=== PATIENT | female | born 1995 | race Caucasian/White ===

== ENCOUNTER 2017-04-20 08:07 | Emergency (ER) | payer OTHER ==
[2017-04-20 08:27] VITALS: TEMP 98.4
[2017-04-20] MEDS ORDERED: KETOROLAC 30 MG/ML 1 ML VIAL IVP STA (09:00)
[2017-04-20] MEDS ORDERED: ONDANSETRON 4 MG/2 ML VIAL IVP STA (09:00)
[2017-04-20] MEDS ORDERED: PANTOPRAZOLE 40 MG/10 ML VIAL IVP STA (09:00)
[2017-04-20] MEDS ORDERED: SODIUM CHLORIDE 0.9% 1,000 ML IV STA (09:00)
--- NOTE | 2017-04-20 09:02 | ED ---
Abdominal Pain HPI - General Chief Complaint: Abdominal Pain Stated Complaint: left side abdominal pain Time Seen by Provider: 04/20/17 08:29 Source: patient, RN notes reviewed, old records reviewed Mode of arrival: ambulatory Limitations: no limitations - History of Present Illness Initial Comments: This patient is a 21-year-old female chief complaint of intermittent left sided abdominal pain for the past 4 days. She reports that she had a sharp stabbing pain and will comply her up out of her sleep. She reports that when she has a sharp sudden pain she feels nauseated and has vomited. She states she's had no fever or chills. Normal bowel movements and urination. Her last cycle was one month ago. Denies any chance of . Patient states that she has no significant medical history. She was diagnosed with GERD approximately 2 years ago she stopped taking any medications as she fell she really does not have croup. She does drink a lot of soda, denies any alcohol or drug use. Patient reports that when she was vomiting this morning she noticed a dark black tinge to it. - Related Data Previous Rx's Medication Instructions Recorded Acetaminophen-Codeine 300-30mg 1 tab PO Q6H PRN #15 tablet 04/20/17 [Tylenol #3] Ketorolac [Toradol] 10 mg PO TID #15 tab 04/20/17 Ondansetron Odt [Zofran Odt] 4 mg PO Q8HR PRN #15 tab 04/20/17 Tamsulosin [Flomax] 0.4 mg PO DAILY #10 cap 04/20/17 Allergies Allergy/AdvReac Type Severity Reaction Status Date / Time No Known Allergies Allergy Verified 04/20/17 08:49 Review of Systems ROS Statement: Those systems with pertinent positive or pertinent negative responses have been documented in the HPI. ROS Other: All systems not noted in ROS Statement are negative. Past Medical History Past Medical History: No Reported History History of Any Multi-Drug Resistant Organisms: None Reported Past Surgical History: No Surgical Hx Reported Past Psychological History: Anxiety, Depression Smoking Status: Current every day smoker Past Alcohol Use History: None Reported Past Drug Use History: Marijuana General Exam - General Exam Comments Initial Comments: This patient is a 21-year-old female. No distress. Limitations: no limitations General appearance: alert, in no apparent distress Head exam: Present: atraumatic, normocephalic, normal inspection Eye exam: Present: normal appearance, PERRL, EOMI. Absent: scleral icterus, conjunctival injection, periorbital swelling ENT exam: Present: normal exam, mucous membranes moist Neck exam: Present: normal inspection. Absent: tenderness, meningismus, lymphadenopathy Respiratory exam: Present: normal lung sounds bilaterally. Absent: respiratory distress, wheezes, rales, rhonchi, stridor Cardiovascular Exam: Present: regular rate, normal rhythm, normal heart sounds. Absent: systolic murmur, diastolic murmur, rubs, gallop, clicks GI/Abdominal exam: Present: soft, tenderness (Patient is a minimal left lower quadrant tenderness and left CVA tenderness.), normal bowel sounds. Absent: distended, guarding, rebound, rigid Extremities exam: Present: normal inspection, full ROM, normal capillary refill. Absent: tenderness, pedal edema, joint swelling, calf tenderness Back exam: Present: normal inspection, CVA tenderness (L) Neurological exam: Present: alert, oriented X3, CN II-XII intact Psychiatric exam: Present: normal affect, normal mood Skin exam: Present: warm, dry, intact, normal color. Absent: rash Course Vital Signs 04/20/17 08:24 Temperature 98.4 F Pulse Rate 18 L Respiratory 74 H Rate Blood Pressure 141/67 O2 Sat by Pulse 98 Oximetry Medical Decision Making - Medical Decision Making This is a 21-year-old female presents emergency Department a chief complaint of intermittent left side abdominal pain for the past few days. He reports it woke up out of her pain. At this time patient was given IV fluids labwork obtained. Given Toradol and nausea medicine. Patient urinalysis is positive for many red blood cells. She is not on her menstrual cycle. Concern for possible ureteral stone. Patient has some minor left CVA tenderness. This time patient's CT abdomen and pelvis was performed evidence of a 2 mm ureteral stone or possible phlebolith. At this time is likely a ureteral stone due to blood in her urine. I will treat the patient with Flomax, Toradol, nausea medicine. Her urinalysis shows no significant signs of infection. We will do a urine culture. I discussed that she needs to follow-up with her primary care provider take the medicines for the urinary obstruction or stone to pass. Patient understands treatment plan will comply. Return parameters were discussed. - Lab Data Result diagrams: 04/20/17 09:19 04/20/17 09:19 Lab Results 04/20/17 04/20/17 04/20/17 Range/Units 09:19 09:19 09:30 WBC 12.5 H (4.0-11.0) k/uL RBC 4.37 (3.80-5.40) m/uL Hgb 13.9 (11.4-16.0) gm/dL Hct 40.9 (34.0-46.0) % MCV 93.5 (80.0-100.0) fL MCH 31.7 (25.0-35.0) pg MCHC 33.9 (31.0-37.0) g/dL RDW 11.8 (11.5-15.5) % Plt Count 269 (150-450) k/uL Neutrophils % 83 % Lymphocytes % 10 % Monocytes % 5 % Eosinophils % 1 % Basophils % 1 % Neutrophils # 10.4 H (1.3-7.7) k/uL Lymphocytes # 1.2 (1.0-4.8) k/uL Monocytes # 0.6 (0-1.0) k/uL Eosinophils # 0.2 (0-0.7) k/uL Basophils # 0.1 (0-0.2) k/uL Sodium 143 (137-145) mmol/L Potassium 4.0 (3.5-5.1) mmol/L Chloride 107 (98-107) mmol/L Carbon Dioxide 23 (22-30) mmol/L Anion Gap 13 mmol/L BUN 11 (7-17) mg/dL Creatinine 0.75 (0.52-1.04) mg/dL Est GFR (MDRD) Af Amer >60 (>60 ml/min/1.73 sqM) Est GFR (MDRD) Non-Af >60 (>60 ml/min/1.73 sqM) Glucose 106 H (74-99) mg/dL Calcium 9.7 (8.4-10.2) mg/dL Total Bilirubin 1.0 (0.2-1.3) mg/dL AST 19 (14-36) U/L ALT 23 (9-52) U/L Alkaline Phosphatase 71 (38-126) U/L Total Protein 7.4 (6.3-8.2) g/dL Albumin 4.4 (3.5-5.0) g/dL Amylase 73 (30-110) U/L Lipase 79 (23-300) U/L Urine Color Light Red Urine Appearance Cloudy H (Clear) Urine pH 6.0 (5.0-8.0) Ur Specific [place] 1.017 (1.001-1.035) Urine Protein 1+ H (Negative) Urine Glucose (UA) Negative (Negative) Urine Ketones Negative (Negative) Urine Blood Large H (Negative) Urine Nitrite Negative (Negative) Urine Bilirubin Negative (Negative) Urine Urobilinogen <2.0 (<2.0) mg/dL Ur Leukocyte Esterase Trace H (Negative) Urine RBC >182 H (0-5) /hpf Urine WBC 16 H (0-5) /hpf Ur Squamous Epith Cells 11 H (0-4) /hpf Urine Bacteria Occasional H (None) /hpf Urine Mucus Many H (None) /hpf Urine HCG, Qual (Not Detectd) 04/20/17 Range/Units 09:30 WBC (4.0-11.0) k/uL RBC (3.80-5.40) m/uL Hgb (11.4-16.0) gm/dL Hct (34.0-46.0) % MCV (80.0-100.0) fL MCH (25.0-35.0) pg MCHC (31.0-37.0) g/dL RDW (11.5-15.5) % Plt Count (150-450) k/uL Neutrophils % % Lymphocytes % % Monocytes % % Eosinophils % % Basophils % % Neutrophils # (1.3-7.7) k/uL Lymphocytes # (1.0-4.8) k/uL Monocytes # (0-1.0) k/uL Eosinophils # (0-0.7) k/uL Basophils # (0-0.2) k/uL Sodium (137-145) mmol/L Potassium (3.5-5.1) mmol/L Chloride (98-107) mmol/L Carbon Dioxide (22-30) mmol/L Anion Gap mmol/L BUN (7-17) mg/dL Creatinine (0.52-1.04) mg/dL Est GFR (MDRD) Af Amer (>60 ml/min/1.73 sqM) Est GFR (MDRD) Non-Af (>60 ml/min/1.73 sqM) Glucose (74-99) mg/dL Calcium (8.4-10.2) mg/dL Total Bilirubin (0.2-1.3) mg/dL AST (14-36) U/L ALT (9-52) U/L Alkaline Phosphatase (38-126) U/L Total Protein (6.3-8.2) g/dL Albumin (3.5-5.0) g/dL Amylase (30-110) U/L Lipase (23-300) U/L Urine Color Urine Appearance (Clear) Urine pH (5.0-8.0) Ur Specific [place] (1.001-1.035) Urine Protein (Negative) Urine Glucose (UA) (Negative) Urine Ketones (Negative) Urine Blood (Negative) Urine Nitrite (Negative) Urine Bilirubin (Negative) Urine Urobilinogen (<2.0) mg/dL Ur Leukocyte Esterase (Negative) Urine RBC (0-5) /hpf Urine WBC (0-5) /hpf Ur Squamous Epith Cells (0-4) /hpf Urine Bacteria (None) /hpf Urine Mucus (None) /hpf Urine HCG, Qual Not Detected (Not Detectd) - Radiology Data Radiology results: report reviewed 2 mm left pelvic density fevers follow-up at distal ureter calculus felt less likely but not excluded. No significant hydronephrosis. Correlate clinically with urine laboratories. Disposition Clinical Impression: Ureteral stone Disposition: HOME SELF-CARE Condition: Good Instructions: Ureteral Stones (ED) Additional Instructions: Patient advised to rest, remain hydrated. Take the medications as prescribed. Follow-up with primary care provider. Also follow-up with urology. Return to the emergency department if any alarming signs or symptoms occur. Prescriptions: Acetaminophen-Codeine 300-30mg [Tylenol #3] 1 tab PO Q6H PRN #15 tablet PRN Reason: Pain Ketorolac [Toradol] 10 mg PO TID #15 tab Ondansetron Odt [Zofran Odt] 4 mg PO Q8HR PRN #15 tab PRN Reason: Nausea Tamsulosin [Flomax] 0.4 mg PO DAILY #10 cap Referrals: None,Stated [Primary Care Provider] - 1-2 days Thee Lambert MD [STAFF PHYSICIAN] - 1-2 days Mirella Liu MD [STAFF PHYSICIAN] - 1-2 days Time of Disposition: 11:36
[2017-04-20 09:34] LABS: Basophils # (A) 0.1 k/uL (0-0.2); Basophils % (A) 1 %; Eosinophils # (A) 0.2 k/uL (0-0.7); Eosinophils % (A) 1 %; HCT 40.9 % (34.0-46.0); HGB 13.9 gm/dL (11.4-16.0); Lymphocytes # (A) 1.2 k/uL (1.0-4.8); Lymphocytes % (A) 10 %; MCH 31.7 pg (25.0-35.0); MCHC 33.9 g/dL (31.0-37.0); MCV 93.5 fL (80.0-100.0); Mean Platelet Volume 6.9; Monocytes # (A) 0.6 k/uL (0-1.0); Monocytes % (A) 5 %; Neutrophils # (A) 10.4 k/uL (1.3-7.7); Neutrophils % (A) 83 %; Platelet Count 269 k/uL (150-450); RBC 4.37 m/uL (3.80-5.40); RDW 11.8 % (11.5-15.5); WBC 12.5 k/uL (4.0-11.0)
[2017-04-20 09:49] LABS: ALT 23 U/L (9-52); AST 19 U/L (14-36); Albumin 4.4 g/dL (3.5-5.0); Alkaline Phosphatase 71 U/L (38-126); Amylase 73 U/L (30-110); Anion Gap 13 mmol/L; Blood Urea Nitrogen 11 mg/dL (7-17); Calcium 9.7 mg/dL (8.4-10.2); Carbon Dioxide 23 mmol/L (22-30); Chloride 107 mmol/L (98-107); Glucose 106 mg/dL (74-99); Lipase 79 U/L (23-300); Sodium 143 mmol/L (137-145); Total Protein 7.4 g/dL (6.3-8.2)
[2017-04-20 09:59] LABS: Appearance,Urine Cloudy (Clear); Bacteria,Urine Occasional /hpf; Bilirubin,Urine Negative (Negative); Blood,Urine Large (Negative); Color,Urine Light Red; Glucose,Urine (UA) Negative (Negative); Ketones,Urine Negative (Negative); Leukocyte Esterase,Urine Trace (Negative); Mucus,Urine Many /hpf; Nitrite,Urine Negative (Negative); Protein,Urine 1+ (Negative); RBC,Urine >182 /hpf (0-5); Specific Gravity,Urine 1.017 (1.001-1.035); Squamous Epithelial Cell,Urine 11 /hpf (0-4); Urobilinogen,Urine <2.0 mg/dL (<2.0); WBC,Urine 16 /hpf (0-5)
--- NOTE | 2017-04-20 10:23 | XR ---
EXAMINATION TYPE: XR KUB DATE OF EXAM: 04/20/2017 10:17 AM CLINICAL HISTORY: Left lower quadrant pain for 5 days. TECHNIQUE: Two Upright KUB images of the abdomen are obtained. COMPARISON: Abdominal x-ray and CT abdomen and pelvis April 04, 2015 FINDINGS: Scattered gas is seen in non-distended small bowel loops. Gas and fecal material is seen in non-distended colon. There is no visceromegaly, pneumoperitoneum, or abnormal calcification apprecia sarah. The lung bases are clear and the osseous structures are intact. IMPRESSION: Overall nonobstructive bowel gas pattern.
--- NOTE | 2017-04-20 11:16 | CT ---
EXAMINATION TYPE: CT abdomen pelvis wo con DATE OF EXAM: 04/20/2017 HISTORY: Lt side flank pain for [address] DLP: 478.1 mGycm. Automated Exposure Control for Dose Reduction was Utilized. TECHNIQUE: CT scan of the abdomen and pelvis is performed without oral or IV contrast. COMPARISON: CT abdomen and pelvis April 04, 2015 FINDINGS: Within the limitations of a non-contrast study, the following observations are made. LUNG BASES: No significant abnormality is appreciated. LIVER/GB: No significant abnormality is appreciated. PANCREAS: No significant abnormality is seen. SPLEEN: Stable 1.1 cm splenule in splenic hilum axial image 31. ADRENALS: No significant abnormality is seen. KIDNEYS: No renal stones or hydronephrosis is present bilaterally. No intraluminal calculus is seen i n poorly distended bladder. There is redemonstration of right-sided pelvic phleboliths which are more prominent in size versus prior. There is new 2 mm density left pelvis superior to these axial image 123 sagittal image 67 and coronal image 53 could reflect phlebolith versus distal ureter calculus, fa vor former but latter is not excluded. There is more prominent inferior left pelvic phlebolith axial image 135 noted. BOWEL: Appendix is unremarkable descending from cecum in the right lower quadrant. GENITAL ORGANS: No gross abnormality seen. LYMPH NODES: No greater than 1cm abdominal or pelvic lymph nodes are appreciated. OSSEOUS STRUCTURES: No significant abnormality is seen. OTHER: No significant additional abnormality is seen. IMPRESSION: New 2 mm superior left pelvic density favors phlebolith, distal ureter calculus felt less likely but not excluded. No significant hydronephrosis identified. Correlate clinically and with uri ne lab values.
[2017-04-20 12:01] VITALS: BP 131/65; PULSE 67; RESP 18
== END 2017-04-20 12:02 | disposition home or self-care (01) ==
LOC: EC 08:07
DX: N20.1 Calculus of ureter (principal); F17.200 Nicotine dependence, unspecified, uncomplicated
CPT/HCPCS: 36415; 80053; 82150; 83690; 85025; 81001; 81025; 74018; 74176; 99285; 96374; 96375 ×2; 96361 ×3; J2405; J1885; C9113

== ENCOUNTER 2017-04-26 06:15 | Emergency (ER) | payer OTHER ==
[2017-04-26] MEDS ORDERED: KETOROLAC 30 MG/ML 1 ML VIAL IVP STA (06:41)
[2017-04-26] MEDS ORDERED: ONDANSETRON 4 MG/2 ML VIAL IVP STA (06:52)
[2017-04-26 07:11] LABS: Basophils # (A) 0.1 k/uL (0-0.2); Basophils % (A) 0 %; Eosinophils # (A) 0.3 k/uL (0-0.7); Eosinophils % (A) 2 %; HCT 40.5 % (34.0-46.0); HGB 13.8 gm/dL (11.4-16.0); Lymphocytes # (A) 2.4 k/uL (1.0-4.8); Lymphocytes % (A) 15 %; MCH 31.7 pg (25.0-35.0); MCV 93.1 fL (80.0-100.0); Mean Platelet Volume 6.8; Monocytes # (A) 0.5 k/uL (0-1.0); Monocytes % (A) 3 %; Neutrophils # (A) 12.1 k/uL (1.3-7.7); Neutrophils % (A) 78 %; Platelet Count 332 k/uL (150-450); RBC 4.35 m/uL (3.80-5.40); RDW 11.7 % (11.5-15.5); WBC 15.4 k/uL (4.0-11.0)
[2017-04-26 07:23] LABS: ALT 24 U/L (9-52); AST 16 U/L (14-36); Albumin 4.4 g/dL (3.5-5.0); Alkaline Phosphatase 67 U/L (38-126); Amylase 68 U/L (30-110); Anion Gap 13 mmol/L; Blood Urea Nitrogen 11 mg/dL (7-17); Calcium 9.8 mg/dL (8.4-10.2); Carbon Dioxide 25 mmol/L (22-30); Chloride 109 mmol/L (98-107); Glucose 128 mg/dL (74-99); Lipase 103 U/L (23-300); Potassium 3.8 mmol/L (3.5-5.1); Sodium 147 mmol/L (137-145); Total Bilirubin 0.6 mg/dL (0.2-1.3); Total Protein 7.5 g/dL (6.3-8.2)
[2017-04-26] MEDS ORDERED: TAMSULOSIN 0.4 MG CAP.ER.24H PO STA (08:30)
[2017-04-26] MEDS ORDERED: MORPHINE SULFATE 4 MG/ML SYRINGE IVP STA (08:30)
--- NOTE | 2017-04-26 08:30 | ED ---
General Adult HPI - General Chief complaint: Abdominal Pain Stated complaint: Female Time Seen by Provider: 04/26/17 07:17 Source: patient, RN notes reviewed, old records reviewed Mode of arrival: ambulatory Limitations: no limitations - History of Present Illness Initial comments: This is a 21-year-old female to the ER for evaluation. Patient presents today for evaluation regarding flank pain. Patient states she has history of kidney stone recent diagnosis of kidney stone and has continued pain for about a week. Patient was seen in this emergency room. Pain is been persistent, patient states she has no insurance was unable to take medications at home to help passed kidney stone. Patient denies any fevers no nausea vomiting. No diarrhea no blood in her stool - Related Data Previous Rx's Medication Instructions Recorded Acetaminophen-Codeine 300-30mg 1 tab PO Q6H PRN #15 tablet 04/20/17 [Tylenol #3] Ketorolac [Toradol] 10 mg PO TID #15 tab 04/20/17 Ondansetron Odt [Zofran Odt] 4 mg PO Q8HR PRN #15 tab 04/20/17 Tamsulosin [Flomax] 0.4 mg PO DAILY #10 cap 04/20/17 Allergies Allergy/AdvReac Type Severity Reaction Status Date / Time No Known Allergies Allergy Verified 04/26/17 06:23 Review of Systems ROS Statement: Those systems with pertinent positive or pertinent negative responses have been documented in the HPI. ROS Other: All systems not noted in ROS Statement are negative. Past Medical History Past Medical History: No Reported History History of Any Multi-Drug Resistant Organisms: None Reported Past Surgical History: No Surgical Hx Reported Past Psychological History: Anxiety, Depression Smoking Status: Current every day smoker Past Alcohol Use History: None Reported Past Drug Use History: Marijuana General Exam Limitations: no limitations General appearance: alert, in no apparent distress Head exam: Present: atraumatic, normocephalic, normal inspection Eye exam: Present: normal appearance, PERRL, EOMI. Absent: scleral icterus, conjunctival injection, periorbital swelling ENT exam: Present: normal exam, mucous membranes moist Neck exam: Present: normal inspection. Absent: tenderness, meningismus, lymphadenopathy Respiratory exam: Present: normal lung sounds bilaterally. Absent: respiratory distress, wheezes, rales, rhonchi, stridor Cardiovascular Exam: Present: regular rate, normal rhythm, normal heart sounds. Absent: systolic murmur, diastolic murmur, rubs, gallop, clicks GI/Abdominal exam: Present: soft, normal bowel sounds. Absent: distended, tenderness, guarding, rebound, rigid Extremities exam: Present: normal inspection, full ROM, normal capillary refill. Absent: tenderness, pedal edema, joint swelling, calf tenderness Back exam: Present: normal inspection Neurological exam: Present: alert, oriented X3, CN II-XII intact Psychiatric exam: Present: normal affect, normal mood Skin exam: Present: warm, dry, intact, normal color. Absent: rash Course Vital Signs 04/26/17 06:19 Temperature 97.7 F Pulse Rate 88 Respiratory 20 Rate Blood Pressure 153/95 O2 Sat by Pulse 95 Oximetry - Reevaluation(s) Reevaluation #1: 04/26/17 08:30 ER visit is reviewed including hematuria, kidney stone Medical Decision Making - Medical Decision Making 21 female the ER with continued flank pain. Kidney stone. Patient encouraged to this increased fluid intake. - Lab Data Result diagrams: 04/26/17 07:00 04/26/17 07:00 Lab Results 04/26/17 04/26/17 04/26/17 Range/Units 05:30 07:00 07:00 WBC 15.4 H (4.0-11.0) k/uL RBC 4.35 (3.80-5.40) m/uL Hgb 13.8 (11.4-16.0) gm/dL Hct 40.5 (34.0-46.0) % MCV 93.1 (80.0-100.0) fL MCH 31.7 (25.0-35.0) pg MCHC 34.0 (31.0-37.0) g/dL RDW 11.7 (11.5-15.5) % Plt Count 332 (150-450) k/uL Neutrophils % 78 % Lymphocytes % 15 % Monocytes % 3 % Eosinophils % 2 % Basophils % 0 % Neutrophils # 12.1 H (1.3-7.7) k/uL Lymphocytes # 2.4 (1.0-4.8) k/uL Monocytes # 0.5 (0-1.0) k/uL Eosinophils # 0.3 (0-0.7) k/uL Basophils # 0.1 (0-0.2) k/uL Sodium 147 H (137-145) mmol/L Potassium 3.8 (3.5-5.1) mmol/L Chloride 109 H (98-107) mmol/L Carbon Dioxide 25 (22-30) mmol/L Anion Gap 13 mmol/L BUN 11 (7-17) mg/dL Creatinine 0.82 (0.52-1.04) mg/dL Est GFR (MDRD) Af Amer >60 (>60 ml/min/1.73 sqM) Est GFR (MDRD) Non-Af >60 (>60 ml/min/1.73 sqM) Glucose 128 H (74-99) mg/dL Calcium 9.8 (8.4-10.2) mg/dL Total Bilirubin 0.6 (0.2-1.3) mg/dL AST 16 (14-36) U/L ALT 24 (9-52) U/L Alkaline Phosphatase 67 (38-126) U/L Total Protein 7.5 (6.3-8.2) g/dL Albumin 4.4 (3.5-5.0) g/dL Amylase 68 (30-110) U/L Lipase 103 (23-300) U/L Urine HCG, Qual Not Detected (Not Detectd) - Radiology Data Radiology results: report reviewed (Ultrasound kidneys and bladder shows no acute disease), image reviewed Disposition Clinical Impression: Ureteral stone Disposition: HOME SELF-CARE Condition: Good Instructions: Kidney Stones (ED) Referrals: None,Stated [Primary Care Provider] - 1-2 days
--- NOTE | 2017-04-26 08:58 | US ---
EXAMINATION TYPE: US kidneys/renal and bladder DATE OF EXAM: 04/26/2017 COMPARISON: CT 04/20/2017 CLINICAL HISTORY: Left side Pain. Vomiting EXAM MEASUREMENTS: Right Kidney: 10.0 x 3.9 x 4.3 cm Left Kidney: 9.9 x 5.3 x 5.1 cm Right Kidney: No hydronephrosis or masses seen Left Kidney: No hydronephrosis or masses seen Bladder: Not fully distended, and therefore limited in evaluation Bilateral Jets seen: No, bladder not distended There is no evidence for hydronephrosis at this point in time. No nephrolithiasis is seen. No tash s are identified. IMPRESSION: No acute process.
[2017-04-26 09:11] VITALS: BP 124/66; PULSE 60; RESP 18; TEMP 97.1
[2017-04-26 09:14] LABS: Amorphous Sediment,Urine Occasional /hpf; Appearance,Urine Turbid (Clear); Bilirubin,Urine Negative (Negative); Blood,Urine Moderate (Negative); Color,Urine Yellow; Glucose,Urine (UA) Negative (Negative); Ketones,Urine 1+ (Negative); Leukocyte Esterase,Urine Negative (Negative); Mucus,Urine Few /hpf; Nitrite,Urine Negative (Negative); PH, Urine 5.5 (5.0-8.0); Protein,Urine 1+ (Negative); RBC,Urine 132 /hpf (0-5); Specific Gravity,Urine 1.023 (1.001-1.035); Squamous Epithelial Cell,Urine 3 /hpf (0-4); Urobilinogen,Urine <2.0 mg/dL (<2.0)
[2017-04-27 13:13] LABS: Chlamydia trachomatis rRNA Not detected (Not detected); Neisseria gonorrhoeae rRNA Not detected (Not detected)
== END 2017-04-26 09:39 | disposition home or self-care (01) ==
LOC: EC 06:15
DX: N20.2 Calculus of kidney with calculus of ureter (principal); F17.200 Nicotine dependence, unspecified, uncomplicated
CPT/HCPCS: 36415; 80053; 87591; 87491; 82150; 83690; 85025; 81001; 81025; 87086; 76770; 99284; 96374; 96375 ×2; J2270; J2405; J1885

== ENCOUNTER 2018-01-02 00:17 | Emergency (ER) | payer OTHER ==
[2018-01-02] MEDS ORDERED: IBUPROFEN 600 MG TAB PO STA (01:09)
[2018-01-02] MEDS ORDERED: ACETAMINOPHEN TAB 325 MG TAB PO STA (01:09)
--- NOTE | 2018-01-02 01:13 | XR ---
EXAMINATION TYPE: XR Hip RT and AP Pelvis DATE OF EXAM: 01/02/2018 COMPARISON: April 04, 2015 HISTORY: Hip pain TECHNIQUE: A single AP view of the pelvis is obtained. Two views of the right hip are obtained. FINDINGS: The pelvic ring is intact. Proximal femurs and hip joints appear normal. There is no sign o f hip dysplasia. Sacroiliac joints appear normal. IMPRESSION: Normal pelvis and right hip exam.
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
[2018-01-02 01:51] VITALS: BP 117/76; PULSE 88; RESP 20; TEMP 99.1
== END 2018-01-02 01:51 | disposition home or self-care (01) ==
LOC: EC 00:17
DX: S76.011A Strain of muscle, fascia and tendon of right hip, initial encounter (principal); S76.311A Strain of muscle, fascia and tendon of the posterior muscle group at thigh level, right thigh, initial encounter; F17.200 Nicotine dependence, unspecified, uncomplicated; W19.XXXA Unspecified fall, initial encounter
CPT/HCPCS: 73502; 99283

== ENCOUNTER 2018-12-16 05:51 | Inpatient (IN) | payer OTHER ==
[2018-12-16] MEDS ORDERED: ONDANSETRON 4 MG/2 ML VIAL IVP STA (06:33)
[2018-12-16] MEDS ORDERED: MORPHINE SULFATE 4 MG/ML SYRINGE IV STA (06:33)
[2018-12-16] MEDS ORDERED: SODIUM CHLORIDE 0.9% 1,000 ML IV STA (06:33)
--- NOTE | 2018-12-16 06:37 | ED ---
Abdominal Pain HPI - General Source: patient, RN notes reviewed Mode of arrival: ambulatory Limitations: no limitations <Evelio Blele - Last Filed: 12/16/18 09:26> <Dheeraj Brooks - Last Filed: 12/16/18 09:33> - General Chief Complaint: Abdominal Pain Stated Complaint: abd pain Time Seen by Provider: 12/16/18 06:18 - History of Present Illness Initial Comments: This a 23-year-old female presents emergency Department chief complaint of severe pelvic pain. Patient states it started approximately 1:00 this morning. Patient does admit that started after intercourse. Patient states that she's never had pain like this in the past. Patient is more left-sided than right- sided but states her whole lower pelvic region hurts. She denies any vaginal bleeding or vaginal discharge. Patient denies any prior abdominal surgeries. Patient denies any chance . Patient does not take any current medications last mental cycle 3-4 weeks ago. Patient states that she has been vomiting for the pain, sweating. Patient denies any history of STDs. Patient denies any flank pain, upper abdominal pain. (Evelio Belle) - Related Data Home Medications Medication Instructions Recorded Confirmed No Known Home Medications 12/16/18 12/16/18 Allergies Allergy/AdvReac Type Severity Reaction Status Date / Time No Known Allergies Allergy Verified 12/16/18 08:51 Review of Systems ROS Other: All systems not noted in ROS Statement are negative. <Evelio Belle - Last Filed: 12/16/18 09:26> ROS Other: All systems not noted in ROS Statement are negative. <Dheeraj Brooks - Last Filed: 12/16/18 09:33> ROS Statement: Those systems with pertinent positive or pertinent negative responses have been documented in the HPI. Past Medical History Past Medical History: No Reported History History of Any Multi-Drug Resistant Organisms: None Reported Past Surgical History: No Surgical Hx Reported Past Psychological History: Anxiety, Depression Smoking Status: Current every day smoker Past Alcohol Use History: Occasional Past Drug Use History: Marijuana <Evelio Belle - Last Filed: 12/16/18 09:26> General Exam Limitations: no limitations General appearance: alert, in no apparent distress Head exam: Present: atraumatic, normocephalic, normal inspection Eye exam: Present: normal appearance, PERRL, EOMI. Absent: scleral icterus, conjunctival injection, periorbital swelling ENT exam: Present: normal exam, normal oropharynx, mucous membranes moist Neck exam: Present: normal inspection, full ROM. Absent: tenderness, me ningismus, lymphadenopathy Respiratory exam: Present: normal lung sounds bilaterally. Absent: respiratory distress, wheezes, rales, rhonchi, stridor Cardiovascular Exam: Present: regular rate, normal rhythm, normal heart sounds. Absent: systolic murmur, diastolic murmur, rubs, gallop, clicks GI/Abdominal exam: Present: soft, tenderness (Moderate lower quadrant tenderness), normal bowel sounds. Absent: distended, guarding, rebound, rigid Back exam: Absent: CVA tenderness (R), CVA tenderness (L) Neurological exam: Present: alert, oriented X3 Skin exam: Present: warm, dry, intact, normal color. Absent: rash <Evelio Belle - Last Filed: 12/16/18 09:26> Course <Dheeraj Brooks - Last Filed: 12/16/18 09:33> Vital Signs 12/16/18 12/16/18 06:07 07:15 Temperature 97.7 F Pulse Rate 58 L 115 H Respiratory 22 17 Rate Blood Pressure 137/101 152/98 O2 Sat by Pulse 96 95 Oximetry - Reevaluation(s) Reevaluation #1: 12/16/18 09:29 PA supervision: I pursued a [id number] evaluation the patient she did demonstrate right lower quadrant pain after sexual intercourse this morning. Imaging and workup suggest tubo-ovarian abscess please see the labs and imaging studies. I did discuss the case with Dr. Natarajan patient will be admitted for IV antibiotics and further evaluation. Patient does say she had fevers chills and sweats this morning (Dheeraj Brooks) Medical Decision Making - Lab Data Result diagrams: 12/16/18 06:41 12/16/18 06:41 <Evelio Belle - Last Filed: 12/16/18 09:26> - Lab Data Result diagrams: 12/16/18 06:41 12/16/18 06:41 <Dheeraj Brooks - Last Filed: 12/16/18 09:33> - Medical Decision Making Patient on have leukocytosis with a white count is 26.7. Patient has tenderness the right adnexal region ultrasound shows some abnormality CT was obtained at this time which shows possibility of tubo-ovarian abscess versus ectopic patient is not . Case discussed with Dr. Natarajan who admitted patient started on IV antibiotics. (Evelio Belle) - Lab Data Lab Results 12/16/18 12/16/18 12/16/18 Range/Units 06:41 06:41 08:22 WBC 26.7 H (3.8-10.6) k/uL RBC 4.10 (3.80-5.40) m/uL Hgb 13.0 (11.4-16.0) gm/dL Hct 38.3 (34.0-46.0) % MCV 93.5 (80.0-100.0) fL MCH 31.8 (25.0-35.0) pg MCHC 34.0 (31.0-37.0) g/dL RDW 12.7 (11.5-15.5) % Plt Count 459 H (150-450) k/uL Neutrophils % 90 % Lymphocytes % 7 % Monocytes % 3 % Eosinophils % 0 % Basophils % 0 % Neutrophils # 24.0 H (1.3-7.7) k/uL Lymphocytes # 1.7 (1.0-4.8) k/uL Monocytes # 0.7 (0-1.0) k/uL Eosinophils # 0.1 (0-0.7) k/uL Basophils # 0.1 (0-0.2) k/uL Sodium 140 (137-145) mmol/L Potassium 4.1 (3.5-5.1) mmol/L Chloride 107 (98-107) mmol/L Carbon Dioxide 20 L (22-30) mmol/L Anion Gap 13 mmol/L BUN 14 (7-17) mg/dL Creatinine 0.73 (0.52-1.04) mg/dL Est GFR (CKD-EPI)AfAm >90 (>60 ml/min/1.73 sqM) Est GFR (CKD-EPI)NonAf >90 (>60 ml/min/1.73 sqM) Glucose 145 H (74-99) mg/dL Calcium 10.0 (8.4-10.2) mg/dL Total Bilirubin 0.7 (0.2-1.3) mg/dL AST 27 (14-36) U/L ALT 30 (9-52) U/L Alkaline Phosphatase 76 (38-126) U/L Total Protein 8.2 (6.3-8.2) g/dL Albumin 4.8 (3.5-5.0) g/dL Lipase 82 (23-300) U/L HCG, Qual Not Detected Urine Color Light [place] Urine Appearance Turbid H (Clear) Urine pH 5.0 (5.0-8.0) Ur Specific [place] 1.026 (1.001-1.035) Urine Protein Trace H (Negative) Urine Glucose (UA) Negative (Negative) Urine Ketones 1+ H (Negative) Urine Blood Negative (Negative) Urine Nitrite Negative (Negative) Urine Bilirubin Negative (Negative) Urine Urobilinogen <2.0 (<2.0) mg/dL Ur Leukocyte Esterase Negative (Negative) Amorphous Sediment Moderate H (None) /hpf Urine Mucus Many H (None) /hpf Disposition <Evelio Belle - Last Filed: 12/16/18 09:26> <Dheeraj Brooks - Last Filed: 12/16/18 09:33> Clinical Impression: Right tubo-ovarian abscess Disposition: ADMITTED IP TO THIS HOSP Condition: Fair Referrals: None,Stated [Primary Care Provider] - 1-2 days
[2018-12-16 06:47] LABS: Basophils # (A) 0.1 k/uL (0-0.2); Basophils % (A) 0 %; Eosinophils # (A) 0.1 k/uL (0-0.7); Eosinophils % (A) 0 %; HCT 38.3 % (34.0-46.0); Lymphocytes # (A) 1.7 k/uL (1.0-4.8); Lymphocytes % (A) 7 %; MCH 31.8 pg (25.0-35.0); MCV 93.5 fL (80.0-100.0); Mean Platelet Volume 5.8; Monocytes # (A) 0.7 k/uL (0-1.0); Monocytes % (A) 3 %; Neutrophils % (A) 90 %; Platelet Count 459 k/uL (150-450); RDW 12.7 % (11.5-15.5); WBC 26.7 k/uL (3.8-10.6)
[2018-12-16 07:06] LABS: ALT 30 U/L (9-52); AST 27 U/L (14-36); African American GFR (CKD) >90 (>60 ml/min/1.73 sqM); Albumin 4.8 g/dL (3.5-5.0); Alkaline Phosphatase 76 U/L (38-126); Anion Gap 13 mmol/L; Blood Urea Nitrogen 14 mg/dL (7-17); Carbon Dioxide 20 mmol/L (22-30); Chloride 107 mmol/L (98-107); Glucose 145 mg/dL (74-99); Potassium 4.1 mmol/L (3.5-5.1); Sodium 140 mmol/L (137-145); Total Bilirubin 0.7 mg/dL (0.2-1.3); Total Protein 8.2 g/dL (6.3-8.2)
[2018-12-16 07:07] LABS: HCG,Qualitative Serum Not Detected
[2018-12-16] MEDS ORDERED: SODIUM CHLORIDE 0.9% 1,000 ML IV ONE (07:17)
[2018-12-16] MEDS ORDERED: METOCLOPRAMIDE 5 MG/ML 2 ML VIAL IVP STA (07:17)
[2018-12-16] MEDS ORDERED: diphenhydrAMINE 50 MG/ML 1 ML VIAL IVP STA (07:17)
--- NOTE | 2018-12-16 08:05 | US ---
EXAMINATION TYPE: US transvaginal DATE OF EXAM: 12/16/2018 COMPARISON: NONE CLINICAL HISTORY: pain lower pelvic region. RLQ pain TECHNIQUE: Transvaginal (TV). EXAM MEASUREMENTS: Uterus: 8.2 x 3.5 x 4.2 cm Endometrial Stripe: .9 cm Right Ovary: 4.5 x 3.7 x 3.8 cm 1. Uterus: Anteverted Nabothian cyst 2. Endometrium: wnl 3. Right Ovary: Enlarged heterogenous with calcifications seen. 4. Left Ovary: Obscured by overlying bowel gas Spectral, color and waveform doppler imaging shows good arterial and venous flow within the right o vary; there is no evidence for ovarian torsion. 5. Bilateral Adnexa: wnl 6. Posterior cul-de-sac: wnl IMPRESSION: 1. NABOTHIAN CYST. 2. ABNORMAL APPEARING RIGHT OVARY. SHORT-TERM FOLLOW-UP WOULD BE SUGGESTED.
--- NOTE | 2018-12-16 08:57 | CT ---
EXAMINATION TYPE: CT abdomen pelvis w con DATE OF EXAM: 12/16/2018 REFERENCE: Previous study dated 04/20/2017. HISTORY: lower pain HISTORY: Pelvic pain with frequent urination CT DLP: 1146.3 mGy Automated exposure control for dose reduction was used. TECHNIQUE: Helical acquisition through the abdomen and pelvis was obtained following the oral ingesti on of without Oral Contrast and following intravenous administration of 100 mL of Isovue 300. The oumou a was reformatted in axial, coronal and sagittal projections. FINDINGS: Visualized portions of the lungs are clear. There is no pleural or pericardial fluid. The heart is not enlarged. Within the abdomen, is a small amount of ascites. The liver, spleen and gallbladder are normal. There is a small sliding hiatal hernia. Both adrenal glands are normal. Both kidneys demonstrate function and appear morphologically normal The pancreas is unremarkable. There is no significant retroperitoneal, iliac or inguinal adenopathy. There is a moderate amount of free fluid within the pelvis. There is a 2.8 cm ring-enhancing lesion i n the region of the right adnexa. Large, enhancing follicle versus tubo-ovarian abscess considered. T he endometrial stripe measures 1.3 cm. Ectopic is not excluded. No significant diverticular change. There is some mild thickening of the left side of the colon which may be due to colonic collapse or inflammatory change. The appendix is unremarkable. Small bowel loops are of normal caliber. No free air is seen. IMPRESSION: 1. MODERATE ASCITES AND FREE FLUID IN THE PELVIS. 2. 2.8 CM RING ENHANCING LESION IN THE REGION OF THE RIGHT ADNEXA. TUBO-OVARIAN ABSCESS WOULD NEED TO BE CONSIDERED. ECTOPIC IS NOT EXCLUDED.
[2018-12-16 09:06] LABS: Amorphous Sediment,Urine Moderate /hpf; Appearance,Urine Turbid (Clear); Bilirubin,Urine Negative (Negative); Blood,Urine Negative (Negative); Color,Urine Light Orange; Glucose,Urine (UA) Negative (Negative); Ketones,Urine 1+ (Negative); Leukocyte Esterase,Urine Negative (Negative); Mucus,Urine Many /hpf; Nitrite,Urine Negative (Negative); Protein,Urine Trace (Negative); Specific Gravity,Urine 1.026 (1.001-1.035); Urobilinogen,Urine <2.0 mg/dL (<2.0)
[2018-12-16] MEDS ORDERED: MORPHINE SULFATE 4 MG/ML SYRINGE IVP STA (09:13)
[2018-12-16] MEDS ORDERED: DOXYCYCLINE 100 MG in SODIUM CHLORIDE 0.9% 100 ML IVPB ONE (09:22)
[2018-12-16] MEDS ORDERED: MORPHINE SULFATE 4 MG/ML SYRINGE IV PRN (09:27)
[2018-12-16] MEDS ORDERED: NALOXONE 0.4 MG/ML 1 ML VIAL IV PRN (09:27)
[2018-12-16] MEDS ORDERED: IBUPROFEN IV 800 MG in SODIUM CHLORIDE 0.9% 250 ML IV ONE (11:19)
--- NOTE | 2018-12-16 11:55 | P.HPOB ---
History of Present Illness H&P Date: 12/16/18 Chief Complaint: Tubo-ovarian abscess This is a 23-year-old non female that presented to the emergency department after she noted severe pain in the right lower quadrant [place] 1 AM. Patient admits that it started with intercourse. Patient denies any vaginal bleeding or vaginal discharge and states her last [place]. Was approximately 3- 4 weeks ago. test in the emergency department was negative. 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 She states her menstrual cycles are regular every month with a moderate flow. She denies any changes in her vaginal discharge. She is not currently using control but states she does use condoms occasionally. She is not with a consistent partner. Review of Systems Constitutional: Reports fever, Denies chills, Denies fatigue Ears, nose, mouth and throat: Denies headache Cardiovascular: Denies leg edema Respiratory: Denies dyspnea Gastrointestinal: Denies constipation, Denies nausea, Denies vomiting Genitourinary: Denies menorrhagia Menstruation: Denies menses variable, Denies period heavy Past Medical History Past Medical History: No Reported History History of Any Multi-Drug Resistant Organisms: None Reported Past Surgical History: No Surgical Hx Reported Past Psychological History: Anxiety, Depression Smoking Status: Current every day smoker Past Alcohol Use History: Occasional Past Drug Use History: Marijuana - Past Family History Mother Family Medical History: Chest Pain / Angina, Hypertension Medications and Allergies Home Medications Medication Instructions Recorded Confirmed Type No Known Home Medications 12/16/18 12/16/18 History Allergies Allergy/AdvReac Type Severity Reaction Status Date / Time No Known Allergies Allergy Verified 12/16/18 08:51 Exam Osteopathic Statement: *. No significant issues noted on an osteopathic structural exam other than those noted in the History and Physical/Consult. Vital Signs Temp Pulse Pulse Resp BP Pulse Ox 12/16/18 11:01 97.7 F 104 H 16 95 12/16/18 10:00 98.0 F 84 18 124/67 99 12/16/18 07:15 115 H 17 152/98 95 12/16/18 06:07 97.7 F 58 L 22 137/101 96 Intake and Output 12/15/18 12/16/18 12/16/18 22:59 06:59 14:59 Other: Weight 72.575 kg Targeted physical exam is performed on this date in general this a well- nourished well-developed 23-year-old non female in no acute distress. She is resting comfortably in her bed sitting up. She notes nonlabored breathing her heart has regular rate and rhythm her abdomen is soft with the exception of tenderness in the right lower quadrant. No lower extremity edema is noted. Results Result Diagrams: 12/16/18 06:41 12/16/18 06:41 Abnormal Lab Results - Last 24 Hours (Table) 12/16/18 12/16/18 12/16/18 Range/Units 06:41 06:41 08:22 WBC 26.7 H (3.8-10.6) k/uL Plt Count 459 H (150-450) k/uL Neutrophils # 24.0 H (1.3-7.7) k/uL Carbon Dioxide 20 L (22-30) mmol/L Glucose 145 H (74-99) mg/dL Urine Appearance Turbid H (Clear) Urine Protein Trace H (Negative) Urine Ketones 1+ H (Negative) Amorphous Sediment Moderate H (None) /hpf Urine Mucus Many H (None) /hpf Assessment and Plan (1) Right tubo-ovarian abscess Current Visit: Yes Status: Acute Code(s): N70.93 - SALPINGITIS AND OOPHORITIS, UNSPECIFIED SNOMED Code(s): 99800704 Plan: Patient is admitted for IV antibiotics. CAT scan and ultrasound are reviewed with the patient along with white blood cell count. Patient states understanding of the need for IV antibiotics we will repeat a CBC in the morning and further assess.
[2018-12-16] MEDS: PIPERACILLIN-TAZOBACTAM 3.375 GM in SODIUM CHLORIDE 0.9% 100 ML IVPB SCH (15:49)
[2018-12-16] MEDS: SODIUM CHLORIDE 0.9% 1,000 ML IV SCH (15:50)
[2018-12-16] MEDS: ONDANSETRON 4 MG/2 ML VIAL IVP PRN (19:21)
[2018-12-16] MEDS: DOXYCYCLINE 100 MG in SODIUM CHLORIDE 0.9% 100 ML IVPB SCH (20:09)
[2018-12-17] MEDS: PIPERACILLIN-TAZOBACTAM 3.375 GM in SODIUM CHLORIDE 0.9% 100 ML IVPB SCH ×2 (00:08→08:29)
[2018-12-17] MEDS: SODIUM CHLORIDE 0.9% 1,000 ML IV SCH (00:18)
[2018-12-17] MEDS: HYDROcodone/APAP 5-325MG 1 EACH TAB PO PRN ×2 (03:44→08:29)
[2018-12-17] MEDS: DOXYCYCLINE 100 MG in SODIUM CHLORIDE 0.9% 100 ML IVPB SCH (07:14)
[2018-12-17 08:28] LABS: HCT 27.8 % (34.0-46.0); MCH 31.9 pg (25.0-35.0); MCHC 33.1 g/dL (31.0-37.0); MCV 96.3 fL (80.0-100.0); Mean Platelet Volume 6.6; Platelet Count 290 k/uL (150-450); RBC 2.89 m/uL (3.80-5.40)
[2018-12-17 08:32] LABS: HGB 9.2 gm/dL (11.4-16.0)
[2018-12-17] MEDS: ONDANSETRON 4 MG/2 ML VIAL IVP PRN (08:46)
[2018-12-17 08:48] VITALS: RESP 16
--- NOTE | 2018-12-17 10:10 | P.DS ---
Providers Date of admission: 12/16/18 09:28 Expected date of discharge: 12/17/18 Attending physician: Diya Natarajan Primary care physician: Stated None - Discharge Diagnosis(es) (1) Right tubo-ovarian abscess Current Visit: Yes Status: Acute (2) Anemia Current Visit: Yes Status: Acute (3) Tobacco abuse Current Visit: Yes Status: Acute Hospital Course: This is a 23-year-old non female that presented to the emergency department on 12/16 with complaints of severe right lower quadrant pain. Patient states it started around 1 AM during/after intercourse. Patient was having unprotected intercourse at the time. Patient states she is not on any contraception. Urine test in the emergency department it was negative. Her last menstrual period was 3-4 weeks ago. She states she does have regular menstrual cycles and uses condoms occasionally. 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 She did have a Pap test at that time and believes it was normal. She denies any recent changes in vaginal discharge. On workup in the emergency department the ultrasound showed a possible right ovarian mass therefore CT was performed and tubo-ovarian abscess was diagnosed versus ectopic but as the patient is not diagnosis is TOA. Patient has been admitted since yesterday morning. Patient has received 2 doses of Zosyn along with cefoxitin, and multiple doxycycline doses. Patient has been afebrile for 24 hours since being admitted to the hospital, her white count has decreased from 26-10. Patient was resting comfortably in the bed this morning when I rounded. Given patient has been afebrile and a significant decrease in her white count she will be discharged home later this afternoon. Patient is agreeable to this Patient Condition at Discharge: Good Plan - Discharge Summary Discharge Rx Participant: No New Discharge Prescriptions: No Action No Known Home Medications Discharge Medication List No Known Home Medications 12/16/18 [History] Follow up Appointment(s)/Referral(s): None,Stated [Primary Care Provider] - 1-2 days Diya Natarajan DO [Doctor of Osteopathic Medicine] - 1 Week Activity/Diet/Wound Care/Special Instructions: Patient is given prescriptions for ciprofloxacin and metronidazole and discharge. I did discuss with her that she should use ibuprofen/Tylenol for discomfort as needed. Patient will need to follow up with myself for continued care. Patient is currently without insurance and I did discuss with her getting on assistance/Medicaid. She states she has been thinking of this and will look into it. I did call case management and they are going to help her with her outpatient antibiotic prescriptions. No intercourse until this infection has resolved/she has seen me in follow-up. Encouraged patient to discontinue smoking. Discharge Disposition: HOME SELF-CARE
[2018-12-17 12:35] VITALS: BP 101/64; PULSE 79; TEMP 99.2
[2018-12-17 15:56] LABS: C. trachomatis,PCR Negative (Neg,Equiv); Chlamydia trachomatis Source Cervix
[2018-12-17 15:58] LABS: N. gonorrhoeae,PCR Negative (Neg,Equiv); Neisseria Source Cervix
== END 2018-12-17 13:02 | disposition home or self-care (01) | DRG 759 ==
LOC: EC 05:51 → 6PED 09:28
PROVIDERS: ADMIT Obstetrics & Gynecology Obstetrics; ATTEND Obstetrics & Gynecology Obstetrics
DX: N70.93 Salpingitis and oophoritis, unspecified (principal); D64.9 Anemia, unspecified; D72.829 Elevated white blood cell count, unspecified; F17.200 Nicotine dependence, unspecified, uncomplicated; Z82.49 Family history of ischemic heart disease and other diseases of the circulatory system
CPT/HCPCS: 36415; 74177; 76830; 80053; 81001; 83605; 83690; 84703; 85025; 85027; 87040; 87070; 87491; 87591; 93976; 96361; 96374; 96375; 96376; 99285

== ENCOUNTER 2020-04-08 00:35 | Emergency (ER) | payer OTHER ==
[2020-04-08 00:50] VITALS: BP 130/81; PULSE 93; RESP 18; TEMP 99.3
--- NOTE | 2020-04-08 01:00 | ED ---
Lower Extremity Injury HPI - General Chief Complaint: Extremity Injury, Lower Stated Complaint: RT ankle injury Time Seen by Provider: 04/08/20 00:52 Source: patient Mode of arrival: wheelchair Limitations: no limitations - History of Present Illness Complaint: ankle injury Onset/Timin -: hour(s) Injury: Ankle: Right Type of Injury: inversion Place: home Severity: moderate Improves With: nothing Worsens With: weight bearing Context: fall Associated Symptoms: swelling - Related Data Previous Rx's Medication Instructions Recorded Ibuprofen [Motrin] 600 mg PO Q8HR PRN #20 tab 04/08/20 Allergies Allergy/AdvReac Type Severity Reaction Status Date / Time No Known Allergies Allergy Verified 04/08/20 00:50 Review of Systems ROS Statement: Those systems with pertinent positive or pertinent negative responses have been documented in the HPI. ROS Other: All systems not noted in ROS Statement are negative. Cardiovascular: Denies: chest pain, syncope Musculoskeletal: Denies: back pain Neurological: Denies: headache, weakness, numbness, paresthesias Past Medical History Past Medical History: No Reported History History of Any Multi-Drug Resistant Organisms: None Reported Past Surgical History: No Surgical Hx Reported Past Psychological History: Anxiety, Depression Past Alcohol Use History: Occasional Past Drug Use History: Marijuana - Past Family History Mother Family Medical History: Chest Pain / Angina, Hypertension General Exam Limitations: no limitations General appearance: alert, in no apparent distress Right Knee exam: Present: normal inspection, full ROM. Absent: tenderness, swelling Lower Leg exam: Present: normal inspection, full ROM. Absent: tenderness, swelling Ankle exam: Present: tenderness, swelling. Absent: abrasion, laceration, ecchymosis, deformity, crepitus, dislocation Foot/Toe exam: Present: normal inspection, full ROM. Absent: tenderness, swelling, abrasion, laceration, ecchymosis, deformity, crepitus, dislocation, erythema, amputation, calcaneal tenderness, tenderness at base of 5th metatarsal Neurovascular tendon exam: Absent: pulse deficit, motor deficit, sensory deficit, extremity cold to touch, pallor Neurological exam: Present: alert. Absent: motor sensory deficit Skin exam: Present: warm, dry, intact, normal color. Absent: rash Course Vital Signs 04/08/20 00:47 Temperature 99.3 F Pulse Rate 93 Respiratory 18 Rate Blood Pressure 130/81 O2 Sat by Pulse 98 Oximetry Disposition Clinical Impression: Ankle sprain Disposition: HOME SELF-CARE Condition: Good Instructions (If sedation given, give patient instructions): Ankle Sprain (ED) Prescriptions: Ibuprofen [Motrin] 600 mg PO Q8HR PRN #20 tab PRN Reason: Pain Is patient prescribed a controlled substance at d/c from ED?: No Referrals: None,Stated [Primary Care Provider] - 1-2 days
--- NOTE | 2020-04-08 01:28 | XR ---
EXAM: XR Right Ankle Complete, 3 or More Views CLINICAL HISTORY: ITS.REASON XR Reason: fall injury TECHNIQUE: Frontal, lateral and oblique views of the right ankle. COMPARISON: 07/27/2013 FINDINGS: Bones/joints: No acute fracture. No dislocation. Ankle mortise is congruent. Soft tissues: Soft tissue swelling about the lateral malleolus. Small ankle effusion. No significant edema within [place]'s fat pad. IMPRESSION: Soft tissue swelling about the right lateral malleolus. No radiographic evidence of acute fracture or dislocation of the right ankle.
== END 2020-04-08 01:54 | disposition home or self-care (01) ==
LOC: EC 00:35
DX: S93.401A Sprain of unspecified ligament of right ankle, initial encounter (principal); W01.0XXA Fall on same level from slipping, tripping and stumbling without subsequent striking against object, initial encounter; Y92.009 Unspecified place in unspecified non-institutional (private) residence as the place of occurrence of the external cause
CPT/HCPCS: 73610; 99283; L4350

== ENCOUNTER 2020-08-16 00:09 | Emergency (ER) | payer OTHER ==
[2020-08-16 00:33] VITALS: RESP 18
[2020-08-16] MEDS ORDERED: SODIUM CHLORIDE 0.9% 1,000 ML IV ONE (00:44)
[2020-08-16 01:53] LABS: Basophils # (A) 0.1 k/uL (0-0.2); Basophils % (A) 1 %; Eosinophils # (A) 0.2 k/uL (0-0.7); Eosinophils % (A) 2 %; HCT 38.6 % (34.0-46.0); HGB 12.6 gm/dL (11.4-16.0); Lymphocytes % (A) 22 %; MCH 30.1 pg (25.0-35.0); MCHC 32.6 g/dL (31.0-37.0); MCV 92.1 fL (80.0-100.0); Mean Platelet Volume 7.2; Monocytes # (A) 0.5 k/uL (0-1.0); Monocytes % (A) 4 %; Neutrophils # (A) 9.3 k/uL (1.3-7.7); Neutrophils % (A) 70 %; Platelet Count 317 k/uL (150-450); RBC 4.19 m/uL (3.80-5.40); RDW 13.8 % (11.5-15.5); WBC 13.3 k/uL (3.8-10.6)
--- NOTE | 2020-08-16 01:53 | ED ---
General Adult HPI - General Chief complaint: Vaginal Bleeding Stated complaint: 8 wks , vaginal bleeding Time Seen by Provider: 08/16/20 00:36 Source: patient Mode of arrival: ambulatory Limitations: no limitations - History of Present Illness Initial comments: 25 year-old female patient presents to the emergency department for evaluation of vaginal bleeding in early . States that her last period was 06/28/20. She is . Started having spotting and lower abdominal cramping yesterday. States that symptoms persisted today she presented for evaluation. Reports blood on toilet paper with wiping. Has not had to wear a pad. States that she does not have an appointment with her OBGYN Dr. Celis until 09/10/20. Has not had ultrasound. Denies any dysuria, urinary urgency, urinary frequency. Denies nausea or vomiting. Denies constipation or diarrhea. Patient denies any recent rash, fever, chills, cough, shortness of breath, chest pain, back pain, numbness, tingling, dizziness, weakness, headache, visual changes, or any other complaints. - Related Data Previous Rx's Medication Instructions Recorded Ibuprofen [Motrin] 600 mg PO Q8HR PRN #20 tab 04/08/20 Allergies Allergy/AdvReac Type Severity Reaction Status Date / Time No Known Allergies Allergy Verified 08/16/20 00:33 Review of Systems ROS Statement: Those systems with pertinent positive or pertinent negative responses have been documented in the HPI. ROS Other: All systems not noted in ROS Statement are negative. Past Medical History Past Medical History: No Reported History History of Any Multi-Drug Resistant Organisms: None Reported Past Surgical History: No Surgical Hx Reported Past Psychological History: Anxiety, Depression Smoking Status: Vaper Past Alcohol Use History: Occasional Past Drug Use History: Marijuana - Past Family History Mother Family Medical History: Chest Pain / Angina, Hypertension General Exam Limitations: no limitations General appearance: alert, in no apparent distress, other (This is a well- developed, well-nourished adult female patient in no acute distress. Vital signs upon presentation temperature 97.4F, pulse 91, respirations 18, blood pressure 146/84, pulse ox 97% on room air.) Eye exam: Present: normal appearance, PERRL, EOMI. Absent: scleral icterus, conjunctival injection, periorbital swelling ENT exam: Present: normal exam, normal oropharynx, mucous membranes moist Respiratory exam: Present: normal lung sounds bilaterally. Absent: respiratory distress, wheezes, rales, rhonchi, stridor Cardiovascular Exam: Present: regular rate, normal rhythm, normal heart sounds. Absent: systolic murmur, diastolic murmur, rubs, gallop, clicks GI/Abdominal exam: Present: soft, normal bowel sounds. Absent: distended, tenderness, guarding, rebound, rigid Neurological exam: Present: alert, oriented X3, CN II-XII intact Psychiatric exam: Present: normal affect, normal mood Skin exam: Present: warm, dry, intact, normal color. Absent: rash Course Vital Signs 08/16/20 00:31 Temperature 97.4 F L Pulse Rate 91 Respiratory 18 Rate Blood Pressure 146/84 O2 Sat by Pulse 97 Oximetry Medical Decision Making - Medical Decision Making 25 year-old female patient presents to the emergency department for evaluation of vaginal spotting and lower abdominal cramping. Physical exam is unremarkable. Labs reviewed hCG level 57,000. ABO/RH O-. Urinalysis shows no infection. US shows viable intrauterine measuring 6 weeks. Heart rate 101. I did discuss findings with the patient. She will be given Rhogam injection. Given lab slip for repeat hCG in 2 days. We discharged follow-up with her [employer] for recheck in 1-2 days. Return parameters were discussed in detail. She verbalizes understanding and agrees with this plan. My attending is Dr. Sanders. - Lab Data Result diagrams: 08/16/20 01:15 08/16/20 01:15 Lab Results 08/16/20 08/16/20 08/16/20 Range/Units 01:15 01:15 01:15 WBC 13.3 H (3.8-10.6) k/uL RBC 4.19 (3.80-5.40) m/uL Hgb 12.6 (11.4-16.0) gm/dL Hct 38.6 (34.0-46.0) % MCV 92.1 (80.0-100.0) fL MCH 30.1 (25.0-35.0) pg MCHC 32.6 (31.0-37.0) g/dL RDW 13.8 (11.5-15.5) % Plt Count 317 (150-450) k/uL MPV 7.2 Neutrophils % 70 % Lymphocytes % 22 % Monocytes % 4 % Eosinophils % 2 % Basophils % 1 % Neutrophils # 9.3 H (1.3-7.7) k/uL Lymphocytes # 3.0 (1.0-4.8) k/uL Monocytes # 0.5 (0-1.0) k/uL Eosinophils # 0.2 (0-0.7) k/uL Basophils # 0.1 (0-0.2) k/uL Sodium 137 (137-145) mmol/L Potassium 3.8 (3.5-5.1) mmol/L Chloride 102 (98-107) mmol/L Carbon Dioxide 23 (22-30) mmol/L Anion Gap 12 mmol/L BUN 10 (7-17) mg/dL Creatinine 0.57 (0.52-1.04) mg/dL Est GFR (CKD-EPI)AfAm >90 (>60 ml/min/1.73 sqM) Est GFR (CKD-EPI)NonAf >90 (>60 ml/min/1.73 sqM) Glucose 90 (74-99) mg/dL Calcium 9.5 (8.4-10.2) mg/dL Total Bilirubin 0.8 (0.2-1.3) mg/dL AST 29 (14-36) U/L ALT 27 (4-34) U/L Alkaline Phosphatase 60 (38-126) U/L Total Protein 7.2 (6.3-8.2) g/dL Albumin 4.2 (3.5-5.0) g/dL HCG, Quant 94706.3 mIU/mL Urine Color Urine Appearance (Clear) Urine pH (5.0-8.0) Ur Specific [place] (1.001-1.035) Urine Protein (Negative) Urine Glucose (UA) (Negative) Urine Ketones (Negative) Urine Blood (Negative) Urine Nitrite (Negative) Urine Bilirubin (Negative) Urine Urobilinogen (<2.0) mg/dL Ur Leukocyte Esterase (Negative) Blood Type O Negative Blood Type Recheck No Previous Record Bld Type Recheck Status [facility] ONLY 08/16/20 Range/Units 01:15 WBC (3.8-10.6) k/uL RBC (3.80-5.40) m/uL Hgb (11.4-16.0) gm/dL Hct (34.0-46.0) % MCV (80.0-100.0) fL MCH (25.0-35.0) pg MCHC (31.0-37.0) g/dL RDW (11.5-15.5) % Plt Count (150-450) k/uL MPV Neutrophils % % Lymphocytes % % Monocytes % % Eosinophils % % Basophils % % Neutrophils # (1.3-7.7) k/uL Lymphocytes # (1.0-4.8) k/uL Monocytes # (0-1.0) k/uL Eosinophils # (0-0.7) k/uL Basophils # (0-0.2) k/uL Sodium (137-145) mmol/L Potassium (3.5-5.1) mmol/L Chloride (98-107) mmol/L Carbon Dioxide (22-30) mmol/L Anion Gap mmol/L BUN (7-17) mg/dL Creatinine (0.52-1.04) mg/dL Est GFR (CKD-EPI)AfAm (>60 ml/min/1.73 sqM) Est GFR (CKD-EPI)NonAf (>60 ml/min/1.73 sqM) Glucose (74-99) mg/dL Calcium (8.4-10.2) mg/dL Total Bilirubin (0.2-1.3) mg/dL AST (14-36) U/L ALT (4-34) U/L Alkaline Phosphatase (38-126) U/L Total Protein (6.3-8.2) g/dL Albumin (3.5-5.0) g/dL HCG, Quant mIU/mL Urine Color Yellow Urine Appearance Clear (Clear) Urine pH 5.0 (5.0-8.0) Ur Specific [place] 1.025 (1.001-1.035) Urine Protein Negative (Negative) Urine Glucose (UA) Negative (Negative) Urine Ketones 1+ H (Negative) Urine Blood Negative (Negative) Urine Nitrite Negative (Negative) Urine Bilirubin Negative (Negative) Urine Urobilinogen <2.0 (<2.0) mg/dL Ur Leukocyte Esterase Negative (Negative) Blood Type Blood Type Recheck Bld Type Recheck Status - Radiology Data Radiology results: report reviewed, image reviewed Transvaginal ultrasound was obtained. Report was reviewed in its entirety. Impression by Dr. Herrera shows single intrauterine gestational sac containing a pole of crown-rump length measuring 3.21 mm consistent with 6 weeks 0 days gestation. Estimated date of delivery is Apr 11, 2021. Disposition Clinical Impression: Vaginal bleeding during Disposition: HOME SELF-CARE Condition: Good Instructions (If sedation given, give patient instructions): Threatened Miscarriage (ED) Additional Instructions: Follow up with OBGYN for recheck as soon as possible. Have repeat hCG level drawn in 2 days, return to the lab here at [facility]. Maintain pelvic rest (nothing inserted into the vagina) until cleared by your OBGYN. Return to the emergency department for any new, worsening or concerning symptoms. Is patient prescribed a controlled substance at d/c from ED?: No Referrals: Mira Celis DO [Doctor of Osteopathic Medicine] - 1-2 days Time of Disposition: 03:05
--- NOTE | 2020-08-16 01:59 | US ---
EXAM: US , Transvaginal CLINICAL HISTORY: ITS.REASON US Reason: vaginal bleeding TECHNIQUE: Real-time transvaginal obstetrical ultrasound of the maternal pelvis and a first trimester with image documentation. Transvaginal imaging was used for better evaluation of the fetus and adnexa. COMPARISON: No relevant prior studies available. FINDINGS: Gestation: There is a single intrauterine gestational sac containing a pole with crown-rump length measuring 3.21 mm consistent with 6 weeks 0 days gestation. heart rate 101 bpm MELY: The estimated date of delivery is April 11, 2021. Placenta/amniotic fluid: Cannot be adequately evaluated due to the early gestational age. Uterus/cervix: Uterus measures 7.6 x 4.7 x 6.8 cm. No myometrial mass. Ovaries: The right ovary measures 1.9 x 1.5 x 2 cm, 2.9 mL The left ovary measures 3.2 x 2.3 x 2.7 cm, 10.2 mL with a 1.6 cm corpus let him cyst within it. No mass. Free fluid: No free fluid is seen in the cul-de-sac or adnexa. IMPRESSION: 1. There is a single intrauterine gestational sac containing a pole with crown-rump length measuring 3.21 mm consistent with 6 weeks 0 days gestation. 2. The estimated date of delivery is April 11, 2021.
[2020-08-16 02:09] LABS: ALT 27 U/L (4-34); AST 29 U/L (14-36); African American GFR (CKD) >90 (>60 ml/min/1.73 sqM); Albumin 4.2 g/dL (3.5-5.0); Alkaline Phosphatase 60 U/L (38-126); Anion Gap 12 mmol/L; Blood Urea Nitrogen 10 mg/dL (7-17); Calcium 9.5 mg/dL (8.4-10.2); Carbon Dioxide 23 mmol/L (22-30); Chloride 102 mmol/L (98-107); Glucose 90 mg/dL (74-99); Non-African American GFR(CKD) >90 (>60 ml/min/1.73 sqM); Potassium 3.8 mmol/L (3.5-5.1); Sodium 137 mmol/L (137-145); Total Bilirubin 0.8 mg/dL (0.2-1.3); Total Protein 7.2 g/dL (6.3-8.2)
[2020-08-16 02:14] LABS: Appearance,Urine Clear (Clear); Bilirubin,Urine Negative (Negative); Blood,Urine Negative (Negative); Color,Urine Yellow; Glucose,Urine (UA) Negative (Negative); Ketones,Urine 1+ (Negative); Leukocyte Esterase,Urine Negative (Negative); Nitrite,Urine Negative (Negative); Protein,Urine Negative (Negative); Specific Gravity,Urine 1.025 (1.001-1.035); Urobilinogen,Urine <2.0 mg/dL (<2.0)
[2020-08-16 02:49] LABS: HCG,Quantitative Serum 57761.3 mIU/mL
[2020-08-16] MEDS ORDERED: Rhogam IMMUNE GLOBULIN 1,500 UNIT/1 ML IM ONE (03:00)
[2020-08-16 04:12] VITALS: BP 113/77; PULSE 87; TEMP 98
== END 2020-08-16 04:05 | disposition home or self-care (01) ==
LOC: EC 00:09
DX: O20.9 Hemorrhage in early pregnancy, unspecified (principal); O99.331 Smoking (tobacco) complicating pregnancy, first trimester; F17.290 Nicotine dependence, other tobacco product, uncomplicated; O99.321 Drug use complicating pregnancy, first trimester; F12.90 Cannabis use, unspecified, uncomplicated; Z79.1 Long term (current) use of non-steroidal anti-inflammatories (NSAID); Z3A.01 Less than 8 weeks gestation of pregnancy
CPT/HCPCS: 96360 ×2; 96372 ×2; 99284 ×2; 36415; 86900; 86901; 80053; 85025; 86850; 81003; 84702; 76801; 76817; J2790

== ENCOUNTER 2021-01-03 18:00 | Emergency (ER) | payer OTHER ==
[2021-01-03 18:11] VITALS: BP 127/70; PULSE 106; RESP 18; TEMP 97.3
[2021-01-03] MEDS ORDERED: DIPH,PERTUS(ACELL)TETVAC-LF 0.5 ML VIAL IM ONE (18:24)
--- NOTE | 2021-01-03 18:27 | ED ---
Animal Bite HPI - General Chief Complaint: Animal Bite Stated Complaint: Dog bite, finger injury, 26 weeks Time Seen by Provider: 01/03/21 18:12 Source: patient Mode of arrival: ambulatory Limitations: no limitations - History of Present Illness Initial Comments: Dictation was produced using [employer] dictation software. please excuse any gra mmatical, word or spelling errors. Chief Complaint: 25-year-old female presents emergency department for right History of Present Illness: 25-year-old female past 1 hour prior to arrival patient was bit by dog. The dog's were heard her mother's. The 2 dogs began fighting and he tried to break up the fight. Alternatively that their hands got bit. Dogs are allegedly up-to-date on vaccinations and has not been showing any signs of altered behavior. Patient is in her third trimester . She has no complaints today. He does not want to know when her last tetan us shot was. The ROS documented in this emergency department record has been reviewed and confirmed by me. Those systems with pertinent positive or negative responses have been documented in the HPI. All other systems are other negative and/or noncontributory. PHYSICAL EXAM: General Impression: Alert and oriented x3, not in acute distress HEENT: Normocephalic atraumatic, extra-ocular movements intact, pupils equal and reactive to light bilaterally, mucous membranes moist. Cardiovascular: Heart regular rate and rhythm Chest: Able to complete full sentences, no retractions, no tachypnea Right hand: Multiple abrasions to the hands, no lacerations Psych: Normal affect and mood ED course: 25-year-old female presents to the emergency department with dog bite to the right hand. Vital signs Upon arrival are within acceptable limits. Tetanus was updated. She requested ultrasound. Ultrasound gestational age is 27 weeks. There is satisfactory growth. X-ray is unremarkable. Patient given dose of Augmentin. Patient be discharged with prescription for Augmentin. Patient has puncture wounds to her hand. No indication for suture placement at this point due to concerns of hand infection. Patient given prescription for antibiotics. Patient be discharged. Return precautions discussed. - Related Data Previous Rx's Medication Instructions Recorded Amoxic-Pot Clav 875-125Mg 1 tab PO BID 10 Days #20 tab 01/03/21 [Augmentin 875-125] Allergies Allergy/AdvReac Type Severity Reaction Status Date / Time No Known Allergies Allergy Verified 01/03/21 19:17 Review of Systems ROS Statement: Those systems with pertinent positive or pertinent negative responses have been documented in the HPI. ROS Other: All systems not noted in ROS Statement are negative. Past Medical History Past Medical History: No Reported History History of Any Multi-Drug Resistant Organisms: None Reported Past Surgical History: No Surgical Hx Reported Past Psychological History: Anxiety, Depression Smoking Status: Vaper Past Alcohol Use History: Occasional Past Drug Use History: Marijuana - Past Family History Mother Family Medical History: Chest Pain / Angina, Hypertension General Exam Limitations: no limitations Course Vital Signs 01/03/21 18:09 Temperature 97.3 F L Pulse Rate 106 H Respiratory 18 Rate Blood Pressure 127/70 O2 Sat by Pulse 100 Oximetry Disposition Clinical Impression: Dog bite Disposition: HOME SELF-CARE Condition: Fair Instructions (If sedation given, give patient instructions): Animal Bite (ED) Prescriptions: Amoxic-Pot Clav 875-125Mg [Augmentin 875-125] 1 tab PO BID 10 Days #20 tab Is patient prescribed a controlled substance at d/c from ED?: No Referrals: None,Stated [Primary Care Provider] - 1-2 days
--- NOTE | 2021-01-03 18:37 | XR ---
EXAMINATION TYPE: XR hand complete RT DATE OF EXAM: 01/03/2021 COMPARISON: NONE HISTORY: Dogbite TECHNIQUE: 3 views FINDINGS: Carpal bones are intact. Metacarpals are intact. I see no fracture nor dislocation. There i s soft tissue swelling on the dorsum of the metacarpals. IMPRESSION: Mild soft tissue swelling. No fracture.
[2021-01-03] MEDS ORDERED: AMOXIC-POT CLAV 875-125MG 1 EACH TAB PO STA (20:12)
--- NOTE | 2021-01-03 20:32 | US ---
EXAMINATION TYPE: US OB >= 14 wk fetus DATE OF EXAM: 01/03/2021 COMPARISON: 08/16/2020 CLINICAL HISTORY: high risk per patient; EC patient who suffered dog bite to hand today; c/o back re n after pulling and tugging on dogs; ; "vapes" TECHNIQUE: Transabdominal (TA) GESTATIONAL AGE / DATING Physician Established: (26 weeks/0 days) EDC: 04/11/2021 Dates by LMP: (26 weeks/0 days) EDC: 04/11/2021 Dates by First Scan: today Dates by Current Scan: (27 weeks/ 0 days) EDC: 04/04/2021 Beta HCG (if available): NA at time of US. SURVEY IUP: Single PLACENTA: Anterior with oval hypoechoic area mid placenta = 2.1 x 1.0 x 1.1cm and may be venous henderson . PREVIA: No Previa ADALBERTO: 18 .3 cm Normal CERVICAL LENGTH (transabdominal: norm > 3.0cm): 3.5cm BIOMETRY PRESENTATION: Vertex LIE: Longitudinal BPD: 6.7 cm 27 weeks / 1 days HC: 25.2 cm 27 weeks / 2 days AC: 24.0 cm 28 weeks / 2 days FL: 5.0 cm 27 weeks / 0 days ESTIMATED WEIGHT IN GRAMS: 1111.0 grams ESTIMATED WEIGHT IN LBS/OZ: 2 lbs. 7 oz. WEIGHT PERCENTAGE BASED ON ESTABLISHED DATES: 95.7% HC/AC: 1.05 Normal FL/AC: 20.90 Normal HEART RATE: 134 bpm RHYTHM: Normal Single, live IUP, 27 weeks/ 0 days, EDC: 04/04/2021 , [id number]. IMPRESSION: Ultrasound gestational age is 27 weeks. There is satisfactory growth compared to old exam.
== END 2021-01-03 21:10 | disposition home or self-care (01) ==
LOC: EC 18:00
DX: O9A.212 Injury, poisoning and certain other consequences of external causes complicating pregnancy, second trimester (principal); S61.451A Open bite of right hand, initial encounter; O99.332 Smoking (tobacco) complicating pregnancy, second trimester; F17.200 Nicotine dependence, unspecified, uncomplicated; Z3A.27 27 weeks gestation of pregnancy; Z23 Encounter for immunization; W54.0XXA Bitten by dog, initial encounter
CPT/HCPCS: 76805; 90471; 90715; 99284

== ENCOUNTER 2021-03-08 08:09 | Outpatient (CLI) | payer OTHER ==
[2021-03-08] MEDS ORDERED: ACETAMINOPHEN TAB 500 MG TAB PO STA (08:43)
[2021-03-08 11:05] VITALS: BP 120/87; PULSE 77; RESP 18; TEMP 97.7
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
== END 2021-03-08 11:00 | disposition home or self-care (01) ==
LOC: FBPOP 08:09
PROVIDERS: ATTEND Obstetrics & Gynecology
DX: O26.93 Pregnancy related conditions, unspecified, third trimester (principal); Z3A.36 36 weeks gestation of pregnancy; W19.XXXA Unspecified fall, initial encounter
CPT/HCPCS: 59025; 85461; G0463; 99213

== ENCOUNTER 2021-03-26 15:06 | Inpatient (IN) | payer OTHER ==
[2021-03-26 15:37] LABS: Appearance,Urine Cloudy (Clear); Bacteria,Urine Occasional /hpf; Bilirubin,Urine Negative (Negative); Blood,Urine Negative (Negative); Budding Yeast,Urine Occasional /hpf; Color,Urine Yellow; Glucose,Urine (UA) Negative (Negative); Hyaline Casts,Urine 3 /lpf (0-2); Ketones,Urine Negative (Negative); Leukocyte Esterase,Urine Small (Negative); Mucus,Urine Many /hpf; Nitrite,Urine Negative (Negative); Protein,Urine 2+ (Negative); RBC,Urine 1 /hpf (0-5); Specific Gravity,Urine 1.019 (1.001-1.035); Squamous Epithelial Cell,Urine 12 /hpf (0-4); Urobilinogen,Urine <2.0 mg/dL (<2.0); WBC,Urine 7 /hpf (0-5)
[2021-03-26 16:13] LABS: Creatinine,Urine Random 211.6 mg/dL; Protein/Creatinine Ratio,Urine 0.624
[2021-03-26 16:16] LABS: Creatinine,Urine Random 210.6 mg/dL
[2021-03-26 16:35] LABS: Basophils % (A) 0 %; Eosinophils # (A) 0.1 k/uL (0-0.7); Eosinophils % (A) 1 %; HCT 30.9 % (34.0-46.0); HGB 10.1 gm/dL (11.4-16.0); Hypochromasia Slight; Lymphocytes # (A) 1.5 k/uL (1.0-4.8); Lymphocytes % (A) 14 %; MCH 28.1 pg (25.0-35.0); MCHC 32.9 g/dL (31.0-37.0); MCV 85.7 fL (80.0-100.0); Mean Platelet Volume 8.9; Monocytes # (A) 0.4 k/uL (0-1.0); Monocytes % (A) 4 %; Neutrophils # (A) 8.4 k/uL (1.3-7.7); Neutrophils % (A) 80 %; Platelet Count 268 k/uL (150-450); RDW 13.9 % (11.5-15.5); WBC 10.6 k/uL (3.8-10.6)
[2021-03-26 16:48] LABS: ALT 12 U/L (4-34); AST 18 U/L (14-36); African American GFR (CKD) >90 (>60 ml/min/1.73 sqM); Blood Urea Nitrogen 9 mg/dL (7-17); LDH 426 U/L (313-618); Non-African American GFR(CKD) >90 (>60 ml/min/1.73 sqM); Uric Acid 6.6 mg/dL (3.7-7.4)
--- NOTE | 2021-03-26 17:30 | P.HPOB ---
History of Present Illness H&P Date: 03/26/21 Chief Complaint: Preeclampsia without severe features This is a 25-year-old female 1 para 0 with an estimated date of confinement of 04/04/2021, estimated gestational age of 38-5/7 weeks, who presents to labor and delivery after being seen in the office today and found to have a blood pressure elevated at 140/84. She states she had a headache 2 days ago but it did resolve. She was sent to labor and delivery for labs and monitoring. She did have several elevated blood pressures but not in the severe category. Her urine protein was 2+ and her protein to creatinine ratio was 0.624. All other labs were within normal limits. She still currently denies any symptoms. She is being admitted for observation tonight and will have oxytocin induction of labor starting tomorrow morning. labs: GC/Chlamydia/Trichomonas-negative Hepatitis B surface antigen-negative RPR-nonreactive Rubella-immune Blood type-O- Antibody screen-negative, RhoGAM given at approximately 28 weeks HIV-nonreactive Hemoglobin-11.6 Random glucose-81 One hour Glucola-103 Group B streptococcus-negative Obstetrical history: Gynecologic history: No history of sexually transmitted diseases Social history: She is single. 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 Review of Systems Constitutional: Denies chills, Denies fever Eyes: denies blurred vision, denies pain Ears, nose, mouth and throat: Reports headache (Occasional), Denies sore throat Cardiovascular: Denies chest pain, Denies shortness of breath Respiratory: Denies cough Gastrointestinal: Reports abdominal pain (Irregular contractions) Genitourinary: Reports pelvic pain, Reports Musculoskeletal: Reports low back pain Integumentary: Denies pruritus, Denies rash Neurological: Denies numbness, Denies weakness Past Medical History Past Medical History: No Reported History Additional Past Medical History / Comment(s): History of kidney stones History of Any Multi-Drug Resistant Organisms: None Reported Past Surgical History: No Surgical Hx Reported Past Psychological History: No Psychological Hx Reported Smoking Status: Current every day smoker Past Alcohol Use History: None Reported Past Drug Use History: Marijuana (Admitted daily use to the nurse, had previously denied using it when asked in the office.) - Past Family History Mother Family Medical History: Chest Pain / Angina, Hypertension Medications and Allergies Home Medications Medication Instructions Recorded Confirmed Type No Known Home Medications 03/08/21 03/08/21 History Allergies Allergy/AdvReac Type Severity Reaction Status Date / Time No Known Allergies Allergy Verified 03/26/21 15:18 Exam Osteopathic Statement: *. No significant issues noted on an osteopathic structural exam other than those noted in the History and Physical/Consult. Vital Signs Temp Pulse Resp BP 03/26/21 15:18 96.9 F L 97 16 137/87 Intake and Output 03/26/21 03/26/21 03/26/21 06:59 14:59 22:59 Other: Weight 87.09 kg HEENT: Within normal limits Heart: Regular rate and rhythm Lungs: Clear to auscultation bilaterally Abdomen: Cervix: 1-1/2 cm/60%/-2 station heart tones: Category 1, reactive Contractions: Irregular Extremities: Negative Homans, negative edema Results Result Diagrams: 03/26/21 15:51 03/26/21 15:51 Abnormal Lab Results - Last 24 Hours (Table) 03/26/21 03/26/21 03/26/21 Range/Units 15:20 15:20 15:51 RBC 3.60 L (3.80-5.40) m/uL Hgb 10.1 L (11.4-16.0) gm/dL Hct 30.9 L (34.0-46.0) % Neutrophils # 8.4 H (1.3-7.7) k/uL Urine Appearance Cloudy H (Clear) Urine Protein 2+ H (Negative) Ur Leukocyte Esterase Small H (Negative) Urine WBC 7 H (0-5) /hpf Ur Squamous Epith Cells 12 H (0-4) /hpf Urine Bacteria Occasional H (None) /hpf Hyaline Casts 3 H (0-2) /lpf Urine Mucus Many H (None) /hpf Urine Yeast (Budding) Occasional H (None) /hpf U Random Total Protein 133 H (<12) mg/dL Assessment and Plan (1) Pre-eclampsia Current Visit: Yes Status: Acute Code(s): O14.90 - UNSPECIFIED PRE- ECLAMPSIA, UNSPECIFIED TRIMESTER SNOMED Code(s): 651656653 (2) 38 weeks gestation of Current Visit: Yes Status: Acute Code(s): Z3A.38 - 38 WEEKS GESTATION OF SNOMED Code(s): 35504621 Plan: Admission for observation of blood pressures tonight. We will start oxytocin induction of labor in the morning. Patient was counseled on preeclampsia and the need for delivery. Will not start magnesium unless blood pressures reach severe category. If any changes through the night, induction will be started earlier.
[2021-03-26 17:37] LABS: Amphetamine Screen,Urine Not Detected (NotDetected); Barbiturate Screen,Urine Not Detected (NotDetected); Benzodiazepines Screen,Urine Not Detected (NotDetected); Cocaine Screen,Urine Not Detected (NotDetected); Methadone Screen, Urine Not Detected (NotDetected); Opiate Screen,Urine Not Detected (NotDetected); Oxycodone Screen, Urine Not Detected (NotDetected); Phencyclidine Screen,Urine Not Detected (NotDetected); Tricyclic Antidepressant,Urine Not Detected (NotDetected); Urn Cannabinoid Scrn Detected (NotDetected)
--- NOTE | 2021-03-26 20:48 | P.MSEPDOC ---
Presenting Problems - Arrival Data Date of Arrival on Unit: 03/26/21 Time of Arrival on Unit: 17:14 Mode of Transport: Ambulatory - Complaint OB-Reason for Admission/Chief Complaint: NST, PIH, Observation/Evaluation Comment: sent from office for labs and nst Medical History - Information : 1 Para: 0 Term: 0 : 0 Abortions: Spontaneous or Elective: 0 Number of Living Children: 0 - Gestational Age Gestational Age by MELY (wks/days): 38 Weeks and 5 Days - History Complications: Smoker, Hx. Substance Abuse Comment: mj use Review of Systems - Review of Systems Constitutional: No problems Breast: No problems ENT: No problems Cardiovascular: No problems Respiratory: No problems Gastrointestinal: No problems Genitourinary: No problems Musculoskeletal: No problems Neurological: No problems Skin: No problems Vital Signs - Temperature Temperature: 96.9 F Temperature Source: Temporal Artery Scan - Pulse Right Supine Brachial Pulse Rate: 97 Pulse Assessment Method: Automatic Cuff - Respirations Respiratory Rate: 16 - Blood Pressure Right Arm Blood Pressure: 137/87 Blood Pressure Mean: 103 Blood Pressure Source: Automatic Cuff Medical Screen Scoring - Cervical Exam Membranes: Intact - Uterine Contractions Resting: Soft to palpation - Assessment - Baby A Baseline FHR: 135 Heart Rate - NICHD Category: Category I (Normal) Physician Notification - Physician Notified Physician Notified Date: 03/26/21 Physician Notified Time: 16:51 Physician: Janette Whittington Order Received: Yes Maternal Triage Index - Maternal Triage Index Presenting for scheduled procedure w/no complaint: No - Stat/Priority 1 Stat Priority 1: No - Urgent/Priority 2 Urgent Priority 2: No - Prompt/Priority 3 Prompt Priority 3: Yes Criteria Met for Priority 3: sent from the office for labs and nst Disposition - Disposition OB Disposition: Admit, LDRP Suite I agree with the RN Medical Screening Exam: Yes Case reviewed; plan agreed upon as documented in EMR&OBIX.: Yes Diagnosis: MILD TO MODERATE PRE-ECLAMPSIA, THIRD TRIMESTER
[2021-03-27] MEDS ORDERED: OXYTOCIN 30 UNITS/500 ML NS 30 UNIT in SALINE 1 500ML.BAG IV SCH ×2 (02:23→17:48)
[2021-03-27] MEDS ORDERED: OXYTOCIN 10 UNIT/ML 1 ML VIAL IM PRN (02:23)
[2021-03-27] MEDS ORDERED: CARBOPROST TROMETHAMINE 250 MCG/ML 1 ML AMP IM PRN (02:23)
[2021-03-27] MEDS ORDERED: LIDOCAINE 1% (PF) 10 MG/ML (30 ML SDV) SQ PRN (02:23)
[2021-03-27] MEDS ORDERED: TERBUTALINE 1 MG/ML VIAL SQ PRN (02:23)
[2021-03-27] MEDS ORDERED: LIDOCAINE 1% (10MG/ML) FOR IV START INTRADERMA PRN (02:23)
[2021-03-27] MEDS ORDERED: METHYLERGONOVINE 0.2 MG/ML 1 ML AMP IM PRN (02:23)
[2021-03-27] MEDS: LACTATED RINGERS 1,000 ML IV SCH ×4 (02:27→17:29)
[2021-03-27 06:48] LABS: Basophils % (A) 0 %; Eosinophils # (A) 0.2 k/uL (0-0.7); Eosinophils % (A) 1 %; HCT 32.7 % (34.0-46.0); HGB 10.5 gm/dL (11.4-16.0); Hypochromasia Slight; Lymphocytes # (A) 2.3 k/uL (1.0-4.8); Lymphocytes % (A) 22 %; MCH 27.3 pg (25.0-35.0); MCHC 32.2 g/dL (31.0-37.0); MCV 84.7 fL (80.0-100.0); Mean Platelet Volume 8.8; Monocytes # (A) 0.4 k/uL (0-1.0); Monocytes % (A) 4 %; Neutrophils # (A) 7.6 k/uL (1.3-7.7); Neutrophils % (A) 71 %; Platelet Count 327 k/uL (150-450); RBC 3.86 m/uL (3.80-5.40); RDW 14.5 % (11.5-15.5); WBC 10.7 k/uL (3.8-10.6)
--- NOTE | 2021-03-27 08:46 | P.PN ---
Progress Note - Text Progress Note Date: 03/27/21 Blood pressures have been stable through the night. Cervix this morning is 1- 1/2 cm/60-70%/-2 station. Artificial rupture membranes is carried out with clear fluid noted. Category 1 tracing is noted with irregular contractions. We'll continue with oxytocin induction of labor and expectant management. Will consult social and human services assistant after discharge due to positive marijuana drug screen and marijuana use throughout her .
[2021-03-27] MEDS ORDERED: BUTORPHANOL 1 MG/ML 1 ML VIAL IV PRN (09:21)
[2021-03-27] MEDS ORDERED: MAGNESIUM SULFATE GM 6 GM in SODIUM CHLORIDE 0.9% 100 ML IVPB ONE (09:41)
[2021-03-27] MEDS ORDERED: MAGNESIUM SULFATE 500 MG/ML 20 ML VIAL ONE (10:00)
[2021-03-27] MEDS ORDERED: SODIUM CHLORIDE 0.9% 100 ML BAG IV ONE (10:00)
[2021-03-27] MEDS: MAGNESIUM SULFATE-WATER PMX 20 GM in WATER FOR INJECTION 1 500ML.BAG IV SCH ×2 (10:22→19:23)
[2021-03-27] MEDS ORDERED: fentaNYL (PF) 50 MCG/ML 5 ML AMP ONE ×2 (11:06)
[2021-03-27] MEDS ORDERED: ROPIVACAINE 5MG/ML 20ML VIAL ONE ×2 (11:06)
[2021-03-27] MEDS ORDERED: SODIUM CHLORIDE 0.9% 100 ML BAG ONE ×2 (11:06)
[2021-03-27] MEDS ORDERED: ROPIVACAINE 100 MG, fentaNYL (PF). 200 MCG in SODIUM CHLORIDE 0.9% 76 ML EPIDURAL ONE (12:15)
[2021-03-27] MEDS ORDERED: ONDANSETRON 4 MG/2 ML VIAL IVP PRN (16:32)
[2021-03-27] MEDS ORDERED: LABETALOL 5 MG/ML VIAL MDV IVP PRN ×3 (16:33)
[2021-03-27] MEDS ORDERED: hydrALAZINE HCL 20 MG/ML 1 ML VIAL IVP PRN (16:33)
--- NOTE | 2021-03-27 17:26 | P.PROBDLV ---
Vaginal Delivery Note - . Vaginal Delivery Note: The patient was started on oxytocin induction of labor this morning. She did have artificial rupture membranes with clear fluid noted. Her blood pressures had been fairly stable through the night. During labor with her pain, her blood pressures did increase to severe category. She was started on magnesium sulfate seizure prophylaxis and she did receive an epidural anesthesia. This did bring her blood pressures down for a short time however she reached about 8 cm, she became more uncomfortable and her blood pressures did increase to 180/100. She was given 1 dose of labetalol 20 mg IV push. This did bring the blood pressures down to a safer range. At this point she was feeling a lot of pressure and I checked her and she was found to be 9 cm. I had her push and the cervix immediately went to complete dilation. She gave a couple further pushes and 's head came to a crown. With one further push, the 's head delivered and a left occiput anterior lie across the perineum followed by the anterior shoulder. Nose and mouth were bulb suctioned at the perineum. With one further push, the remainder the easily delivered reducing nuchal cord times one around the body with delivery. was placed on mother's abdomen and then cord was clamped and cut. was taken to warmer for evaluation. A viable female is noted with scores of 8 at 1 minute and 9 at 5 minutes and weight of 6 lbs. 13 oz. Placenta delivered shortly thereafter, intact, with a three-vessel cord. Uterus contracted fairly well after oxytocin was given and uterine massage was carried out. Inspection of the perineum revealed a right periurethral laceration. This area was anesthetized with 1% lidocaine and then sutured with 3-0 Vicryl suture in a running locked fashion just into the vagina. There was a left periurethral abrasion that was noted to be hemostatic. A gloved hand was then placed within the uterine cavity and there were several clots that were removed. Uterus did firm up well and no further clots were obtained. Total estimated blood loss was approximately 200 mL's. Mother and infant are in stable condition.
[2021-03-27] MEDS ORDERED: LANOLIN CREAM 5 GM TUBE TOPICAL PRN (17:48)
[2021-03-27] MEDS ORDERED: SIMETHICONE 80 MG CHEWABLE PO PRN (17:48)
[2021-03-27] MEDS ORDERED: ZOLPIDEM 5 MG TAB PO PRN (17:48)
[2021-03-27] MEDS ORDERED: diphenhydrAMINE 50 MG/ML 1 ML VIAL IVP PRN ×2 (17:48)
[2021-03-27] MEDS ORDERED: ACETAMINOPHEN TAB 325 MG TAB PO PRN (17:48)
[2021-03-27] MEDS ORDERED: diphenhydrAMINE 25 MG CAP PO PRN (17:48)
[2021-03-27] MEDS ORDERED: diphenhydrAMINE 50 MG CAP PO PRN (17:48)
[2021-03-27] MEDS ORDERED: HYDROCORTISONE 2.5% RECTAL CREAM 30 GM TUBE RECTAL PRN (17:48)
[2021-03-27] MEDS ORDERED: BENZOCAINE/MENTHOL SPRAY 1 GM/SPRAY AEROSOL TOPICAL PRN (17:48)
[2021-03-27] MEDS: IBUPROFEN 600 MG TAB PO PRN (18:27)
[2021-03-27] MEDS: SENNOSIDES-DOCUSATE SODIUM 1 EACH TAB PO SCH (21:17)
[2021-03-27] MEDS ORDERED: Rhogam IMMUNE GLOBULIN 1,500 UNIT/1 ML IM ONE (23:06)
[2021-03-28] MEDS: IBUPROFEN 600 MG TAB PO PRN ×2 (00:17→06:03)
[2021-03-28] MEDS: MAGNESIUM SULFATE-WATER PMX 20 GM in WATER FOR INJECTION 1 500ML.BAG IV SCH ×2 (06:07→16:36)
[2021-03-28] MEDS: LACTATED RINGERS 1,000 ML IV SCH (07:16)
[2021-03-28] MEDS: SENNOSIDES-DOCUSATE SODIUM 1 EACH TAB PO SCH ×2 (07:25→19:43)
[2021-03-28 07:32] VITALS: RESP 18
[2021-03-28 10:14] LABS: Basophils % (A) 0 %; Eosinophils # (A) 0.2 k/uL (0-0.7); Eosinophils % (A) 2 %; HCT 24.5 % (34.0-46.0); HGB 8.1 gm/dL (11.4-16.0); Hypochromasia Slight; Lymphocytes # (A) 1.9 k/uL (1.0-4.8); Lymphocytes % (A) 16 %; MCV 84.8 fL (80.0-100.0); Mean Platelet Volume 8.6; Monocytes # (A) 0.6 k/uL (0-1.0); Monocytes % (A) 5 %; Neutrophils # (A) 9.2 k/uL (1.3-7.7); Neutrophils % (A) 76 %; Platelet Count 272 k/uL (150-450); RBC 2.89 m/uL (3.80-5.40); RDW 14.7 % (11.5-15.5); WBC 12.1 k/uL (3.8-10.6)
--- NOTE | 2021-03-28 13:38 | P.PNOBGVD ---
Subjective - Subjective Principal diagnosis: Status post vaginal delivery day #1 Interval history: Patient does state she feels groggy with getting up and somewhat dizzy. She did have 1 episode of vomiting this morning. Otherwise she is feeling better than yesterday as far as vomiting goes. Lochia is minimal. Her pain is well- controlled with ibuprofen. She is breast-feeding. She is currently on magnesium sulfate seizure prophylaxis. Patient reports: Reports appetite normal, Reports voiding normally, Reports pain well controlled, Reports ambulating normally : doing well, nursing well Objective - Latest Vital Signs Latest vital signs: Vital Signs Temp Pulse Resp BP Pulse Ox 03/28/21 12:00 97.6 F 90 18 135/89 99 03/28/21 10:15 97.9 F 93 18 128/85 100 03/28/21 09:11 85 18 137/81 03/28/21 08:15 18 139/80 100 03/28/21 07:15 97.5 F L 83 18 123/80 99 03/28/21 06:00 91 125/75 03/28/21 05:00 85 138/88 03/28/21 04:00 96.3 F L 88 16 143/78 03/28/21 03:00 127/83 03/28/21 02:00 126/76 03/28/21 01:00 134/83 03/28/21 00:00 148/79 03/27/21 23:00 97.7 F 89 16 121/72 96 03/27/21 22:10 132/84 03/27/21 21:16 125/74 03/27/21 19:23 97 18 125/74 03/27/21 18:53 85 18 137/84 03/27/21 18:30 97.8 F 84 18 143/76 03/27/21 18:15 80 149/76 03/27/21 18:00 97.3 F L 91 18 145/88 03/27/21 17:45 96.9 F L 101 H 18 128/79 03/27/21 17:30 97.0 F L 101 H 18 130/85 Intake and Output 03/27/21 03/28/21 03/28/21 22:59 06:59 14:59 Intake Total 638.933 500 Output Total 400 2350 Balance 238.933 500 -2350 Intake: Intake, IV Titration 638.933 500 Amount Magnesium Sulfate-Water 450.833 500 Pmx 20 gm In Water For Injection 1 500ml.bag @ 2 GM/HR 50 mls/hr IV .Q10H [facility] Rx#:[id number] Oxytocin 30 Units/500 ml 188.1 Ns 30 unit In Saline 1 500ml.bag @ Per Protocol IV .Q0M [facility] Rx#:[id number] Output: Urine 400 2350 Other: # Voids 0 - Exam Extremities: Present: normal. Absent: tenderness Abdomen: Present: normal appearance, soft. Absent: distention, tenderness Uterus: Present: normal, firm. Absent: tenderness - Labs Labs: Abnormal Lab Results - Last 24 Hours (Table) 03/28/21 Range/Units 08:37 WBC 12.1 H (3.8-10.6) k/uL RBC 2.89 L (3.80-5.40) m/uL Hgb 8.1 L D (11.4-16.0) gm/dL Hct 24.5 L (34.0-46.0) % Neutrophils # 9.2 H (1.3-7.7) k/uL Assessment and Plan Assessment: Status post vaginal delivery day #1 Preeclampsia with severe features-on magnesium sulfate seizure prophylaxis (1) Pre-eclampsia Current Visit: Yes Status: Acute Code(s): O14.90 - UNSPECIFIED PRE- ECLAMPSIA, UNSPECIFIED TRIMESTER SNOMED Code(s): 872030409 (2) 38 weeks gestation of Current Visit: Yes Status: Acute Code(s): Z3A.38 - 38 WEEKS GESTATION OF SNOMED Code(s): 36830706 Plan: Will discontinue magnesium sulfate at 5 PM tonight. Will add vitamin and iron supplementation. We'll continue to monitor blood pressures through the night until tomorrow As long as blood pressures are stable, will discharge home tomorrow.
[2021-03-28] MEDS: LABETALOL 200 MG TAB PO SCH (19:43)
[2021-03-29] MEDS: IBUPROFEN 600 MG TAB PO PRN ×2 (01:58→08:30)
[2021-03-29] MEDS: LABETALOL 200 MG TAB PO SCH (08:25)
[2021-03-29] MEDS: SENNOSIDES-DOCUSATE SODIUM 1 EACH TAB PO SCH (08:30)
[2021-03-29] MEDS ORDERED: PRENATAL VIT-IRON-FOLIC ACID 1 EACH CAP PO SCH (09:00)
[2021-03-29] MEDS ORDERED: IRON PS CMPLX/VIT B12/FA 1 EACH CAP PO SCH (09:00)
[2021-03-29 09:09] VITALS: PULSE 77; TEMP 97.9
[2021-03-29 09:12] VITALS: BP 116/70
--- NOTE | 2021-03-29 12:41 | P.DS ---
Providers Date of admission: 03/26/21 16:59 Expected date of discharge: 03/29/21 Attending physician: Janette Whittington Primary care physician: Stated None - Discharge Diagnosis(es) (1) Pre-eclampsia Current Visit: Yes Status: Acute (2) 38 weeks gestation of Current Visit: Yes Status: Acute Hospital Course: 25-year-old female 1 para 0 at 38-5/7 weeks who presented after being seen in the office with elevated blood pressures. She was diagnosed with preeclampsia without severe features and was started on oxytocin induction of labor on 03/27/2021. She delivered vaginally a viable female infant with scores of 8 at 1 minute and 9 at 5 minutes and infant weight of 6 lbs. 13 oz. She did have elevated blood pressures during her labor that prompted magnesium sulfate seizure prophylaxis. This was continued for 24 hours after delivery. After the magnesium sulfate was turned off and she later started having elevated blood pressures. She was started on labetalol 200 mg twice a day and so far this has controlled her blood pressures. She denies any headaches or blurry vision. Swelling is minimal. Lochia is decreasing. She is breast-feeding. Vital signs are stable. Abdomen is soft with fundus firm and nontender. Extremities show negative Homans. Impression is status post vaginal delivery day #2, preeclampsia with severe features-controlled on oral labetalol. Plan is to discharge home today. Routine instructions are given. She will be continued on labetalol 200 mg twice a day. She is advised to follow up in the office in 7-10 days for blood pressure check. She is advised to call the office if she has any further questions or concerns prior to her appointment time. She is also advised to make a 6 week checkup appointment. Procedures: Oxytocin induction of labor Spontaneous vaginal delivery of a viable female infant on 03/27/2021 Magnesium sulfate seizure prophylaxis Patient Condition at Discharge: Stable Plan - Discharge Summary New Discharge Prescriptions: New Ibuprofen [Motrin] 600 mg PO Q6HR PRN #60 tab PRN Reason: Mild Pain (Scale 1 To 3) Labetalol [Trandate] 200 mg PO BID #28 tab [id number] Acid [-U Capsule (formulary)] 1 each PO DAILY cap Discharge Medication List Ibuprofen [Motrin] 600 mg PO Q6HR PRN #60 tab 03/29/21 [Rx] Labetalol [Trandate] 200 mg PO BID #28 tab 03/29/21 [Rx] [id number] Acid [-U Capsule (formulary)] 1 each PO DAILY cap 03/29/21 [Rx] Follow up Appointment(s)/Referral(s): Janette Whittington DO [Doctor of Osteopathic Medicine] - 05/07/21 3:30 pm (7-10 day F/U for BP check) Discharge Disposition: HOME SELF-CARE
== END 2021-03-29 13:35 | disposition home or self-care (01) | DRG 807 ==
LOC: FBPOP 15:06 → 4FBP 16:59
PROVIDERS: ADMIT Obstetrics & Gynecology; ATTEND Obstetrics & Gynecology
PROC: 10E0XZZ Delivery of Products of Conception, External Approach (ICD-10-PCS; principal; 2021-03-27)
PROC: 3E033VJ Introduction of Other Hormone into Peripheral Vein, Percutaneous Approach (ICD-10-PCS; 2021-03-27)
PROC: 10907ZC Drainage of Amniotic Fluid, Therapeutic from Products of Conception, Via Natural or Artificial Opening (ICD-10-PCS; 2021-03-27)
PROC: 4A0HXCZ Measurement of Products of Conception, Cardiac Rate, External Approach (ICD-10-PCS; 2021-03-27)
PROC: 0UQMXZZ Repair Vulva, External Approach (ICD-10-PCS; 2021-03-27)
DX: O14.14 Severe pre-eclampsia complicating childbirth (principal); Z37.0 Single live birth; O99.334 Smoking (tobacco) complicating childbirth; O99.324 Drug use complicating childbirth; O69.81X0 Labor and delivery complicated by cord around neck, without compression, not applicable or unspecified; F17.220 Nicotine dependence, chewing tobacco, uncomplicated; O71.82 Other specified trauma to perineum and vulva; F12.90 Cannabis use, unspecified, uncomplicated; Z3A.38 38 weeks gestation of pregnancy; Z87.442 Personal history of urinary calculi; Z20.822 Contact with and (suspected) exposure to COVID-19
CPT/HCPCS: 59025; 80306; 81001; 82565; 82570; 83615; 84156; 84450; 84460; 84520; 84550; 85025; 85461; 86850; 86900; 86901; 87635; 99215

== ENCOUNTER 2023-01-04 06:00 | Inpatient (IN) | payer OTHER ==
--- NOTE | 2023-01-03 08:21 | P.HPOB ---
History of Present Illness H&P Date: 01/03/23 Chief Complaint: Requested induction of labor This patient is a pleasant 27-year-old 2 para 1 female estimated date of confinement 01/09/2023 estimated gestational age 39-2/7 weeks who presents to labor and delivery for requested induction of labor secondary to maternal discomfort. Patient's care has been uncomplicated. She does have a history of gestational hypertension in her last and is been on baby aspirin this . She's had normal blood pressures. Review of Systems Genitourinary: Reports Menstruation: Reports amenorrhea Past Medical History Past Medical History: No Reported History Additional Past Medical History / Comment(s): History of kidney stones. Previous term vaginal delivery History of Any Multi-Drug Resistant Organisms: None Reported Past Surgical History: No Surgical Hx Reported Past Anesthesia/Blood Transfusion Reactions: No Reported Reaction Past Psychological History: No Psychological Hx Reported Smoking Status: Current every day smoker Past Alcohol Use History: None Reported Past Drug Use History: Marijuana - Past Family History Mother Family Medical History: Chest Pain / Angina, Hypertension Medications and Allergies Home Medications Medication Instructions Recorded Confirmed Type Pip-Btmj-Wgheg Acid 1 each PO DAILY cap 03/29/21 Rx [-U Capsule (formulary)] Allergies Allergy/AdvReac Type Severity Reaction Status Date / Time No Known Allergies Allergy Verified 03/26/21 15:18 Exam - OBG Physical Exam Abdomen: bowel sounds normal, no diffuse tenderness, no bruit present, no guarding noted, no hepatomegaly, no splenomegaly, no mass Vulva: both: normal Vagina: normal moisture, no discharge Cervix: Cervix is 1-2 cm and uneffaced Cervix: no lesion, no discharge Uterus: enlarged (Fundal height 37 cm) Results labs show she is O-, rubella immune, RPR is nonreactive, HIV is nonreactive, hepatitis B and C are negative, patient received RhoGAM on October 18, most recent ultrasound showed normal growth, Glucola was normal, group B strep was negative Assessment and Plan Assessment: This is a pleasant 27-year-old 2 para 1 female 39-2/7 weeks gestation noted to labor and delivery for requested induction of labor. Plan is induction of labor and anticipate vaginal delivery. (1) 39 weeks gestation of Status: Acute Code(s): Z3A.39 - 39 WEEKS GESTATION OF SNOMED Code(s): 59623939 (2) Elective induction of labor planned Status: Acute Code(s): BGD8372 - SNOMED Code(s): 199099133 (3) Rh negative status during Status: Acute Code(s): O26.899 - OTH RELATED CONDITIONS, UNSPECIFIED TRIMESTER; Z67.91 - UNSPECIFIED BLOOD TYPE, RH NEGATIVE SNOMED Code(s): 312190625
[2023-01-04] MEDS ORDERED: CARBOPROST TROMETHAMINE 250 MCG/ML 1 ML AMP IM PRN (06:12)
[2023-01-04] MEDS ORDERED: METHYLERGONOVINE 0.2 MG/ML 1 ML AMP IM PRN (06:12)
[2023-01-04] MEDS ORDERED: LIDOCAINE 0.5% (PF) 5 MG/ML (50 ML SDV) SQ PRN (06:12)
[2023-01-04] MEDS ORDERED: TERBUTALINE 1 MG/ML VIAL SQ PRN (06:12)
[2023-01-04] MEDS ORDERED: TRANEXAMIC 1,000 MG/100ML-NACL 1,000 MG in EMPTY BAG 1 BAG IV PRN (06:12)
[2023-01-04] MEDS ORDERED: miSOPROStoL 200 MCG TAB PO PRN (06:12)
[2023-01-04] MEDS ORDERED: OXYTOCIN 10 UNIT/ML 1 ML VIAL IM PRN (06:12)
[2023-01-04] MEDS ORDERED: OXYTOCIN 30 UNITS/500 ML NS 30 UNIT in SALINE 1 500ML.BAG IV SCH ×2 (06:12→12:22)
[2023-01-04] MEDS: LACTATED RINGERS 1,000 ML IV SCH ×2 (06:22→08:28)
[2023-01-04 06:51] LABS: Basophils % (A) 0 %; Eosinophils # (A) 0.2 k/uL (0-0.7); Eosinophils % (A) 2 %; HCT 30.8 % (34.0-46.0); HGB 10.4 gm/dL (11.4-16.0); Lymphocytes # (A) 2.4 k/uL (1.0-4.8); Lymphocytes % (A) 25 %; MCHC 33.8 g/dL (31.0-37.0); MCV 85.8 fL (80.0-100.0); Mean Platelet Volume 7.6; Monocytes # (A) 0.4 k/uL (0-1.0); Monocytes % (A) 4 %; Neutrophils # (A) 6.5 k/uL (1.3-7.7); Neutrophils % (A) 67 %; Platelet Count 354 k/uL (150-450); RBC 3.59 m/uL (3.80-5.40); RDW 14.5 % (11.5-15.5); WBC 9.7 k/uL (3.8-10.6)
[2023-01-04] MEDS ORDERED: ROPIVACAINE 5 MG/ML 30 ML VIAL ONE (08:00)
[2023-01-04] MEDS ORDERED: SODIUM CHLORIDE 0.9% 250 ML BAG ONE (08:00)
[2023-01-04] MEDS ORDERED: fentaNYL (PF) 50 MCG/ML 5 ML AMP ONE (08:00)
[2023-01-04 08:31] LABS: Amphetamine Screen,Urine Not Detected (NotDetected); Barbiturate Screen,Urine Not Detected (NotDetected); Benzodiazepines Screen,Urine Not Detected (NotDetected); Cocaine Screen,Urine Not Detected (NotDetected); Methadone Screen, Urine Not Detected (NotDetected); Opiate Screen,Urine Not Detected (NotDetected); Oxycodone Screen, Urine Not Detected (NotDetected); Phencyclidine Screen,Urine Not Detected (NotDetected); Tricyclic Antidepressant,Urine Not Detected (NotDetected); Urn Cannabinoid Scrn Detected (NotDetected)
[2023-01-04] MEDS ORDERED: ROPIVACAINE 225 MG, fentaNYL (PF). 450 MCG in SODIUM CHLORIDE 0.9% 171 ML EPIDURAL ONE (11:41)
[2023-01-04] MEDS ORDERED: bisacodyL 10 MG SUPP RECTAL PRN (12:22)
[2023-01-04] MEDS ORDERED: SIMETHICONE 80 MG CHEWABLE PO PRN (12:22)
[2023-01-04] MEDS ORDERED: HYDROCORTISONE 2.5% RECTAL CREAM 30 GM TUBE RECTAL PRN (12:22)
[2023-01-04] MEDS ORDERED: diphenhydrAMINE 25 MG CAP PO PRN (12:22)
[2023-01-04] MEDS ORDERED: BENZOCAINE/MENTHOL SPRAY 1 GM/SPRAY AEROSOL TOPICAL PRN (12:22)
[2023-01-04] MEDS ORDERED: ZOLPIDEM 5 MG TAB PO PRN (12:22)
[2023-01-04] MEDS ORDERED: diphenhydrAMINE 50 MG/ML 1 ML VIAL IVP PRN (12:22)
[2023-01-04] MEDS ORDERED: LANOLIN CREAM 5 GM TUBE TOPICAL PRN (12:22)
--- NOTE | 2023-01-04 12:27 | P.PROBDLV ---
Vaginal Delivery Note - . Vaginal Delivery Note: Normal vaginal delivery viable male infant Apgars 8 and 9 delivery time is 1210 hrs. Please see dictated H&P for intimate details of this patient's admission. Brief summary this is a pleasant 27-year-old 2 para 1 female 39-2/7 weeks gestation admitted to labor and delivery for requested induction of labor. Admission patient is 2-3 cm dilated has artificial rupture membranes for clear fluid. Labor progresses and she does get an epidural for pain control. Patient quickly gets to complete pushes the head to the perineum. Posterior perineum is supported we have controlled delivery of the infant's head over the intact perineum. Infant is straight occiput anterior presentation. Mouth and nares are bulb suctioned. There is a nuchal cord 1 which is easily reduced. With gentle downward traction we then have delivery the anterior and posterior shoulder and rest this infant's body. This is a vigorous viable male infant Apgars are 8 and 9 delivery time is 1210 hrs. After delivery of the infant the infant is laid on the mother's abdomen and the umbilical cord after it is done pulsating is doubly clamped and cut. The placenta is then spontaneously delivered intact. There is a superficial right periurethral laceration and no repairs required. Estimated blood loss is 1 50 mL. There are no complications. All counts are correct 3.
[2023-01-04] MEDS: SENNOSIDES-DOCUSATE SODIUM 1 EACH TAB PO SCH ×2 (14:19→20:07)
[2023-01-04] MEDS: IBUPROFEN 600 MG TAB PO PRN ×2 (14:26→20:06)
[2023-01-04] MEDS: ACETAMINOPHEN TAB 325 MG TAB PO PRN ×2 (15:49→22:01)
[2023-01-05 01:17] VITALS: PULSE 73
[2023-01-05] MEDS: ACETAMINOPHEN TAB 325 MG TAB PO PRN (01:35)
[2023-01-05] MEDS: IBUPROFEN 600 MG TAB PO PRN ×2 (04:13→10:30)
--- NOTE | 2023-01-05 06:34 | P.PNOBGVD ---
Subjective - Subjective Patient reports: Reports appetite normal, Reports voiding normally, Reports pain well controlled, Reports ambulating normally : doing well Objective - Latest Vital Signs Latest vital signs: Vital Signs Temp Pulse Resp BP Pulse Ox 01/05/23 00:00 98.3 F 73 14 128/86 98 01/04/23 20:00 98.1 F 83 14 132/86 96 01/04/23 15:57 98.5 F 68 18 130/84 99 01/04/23 14:24 97.0 F L 70 18 119/81 99 01/04/23 13:54 77 18 129/71 01/04/23 13:24 97.3 F L 83 18 115/77 01/04/23 13:09 97.3 F L 68 18 116/65 93 L 01/04/23 12:54 97.0 F L 77 18 102/59 99 01/04/23 12:37 97.0 F L 86 18 122/64 99 01/04/23 12:24 97.4 F L 83 18 127/69 98 01/04/23 07:15 97.4 F L 87 18 134/87 100 Intake and Output 01/04/23 01/04/23 01/05/23 14:59 22:59 06:59 Intake Total 122.800 592 Output Total 372 Balance -249.200 592 Intake: Intake, IV Titration 122.800 342 Amount Oxytocin 30 Units/500 ml 122.800 342 Ns 30 unit In Saline 1 500ml.bag @ Per Protocol IV .Q0M [facility] Rx#:[id number] Oral 250 Output: Estimated Blood Loss 150 Output, Quantitative 222 Blood Loss Other: Voiding Method Toilet # Voids 1 1 1 Weight 81.647 kg - Exam Lungs: bilateral: normal Chest: Normal S1, Normal S2 Extremities: Present: normal Abdomen: Present: normal appearance, soft Uterus: Present: normal, firm - Labs Labs: Abnormal Lab Results - Last 24 Hours (Table) 01/04/23 01/04/23 Range/Units 06:22 07:40 RBC 3.59 L (3.80-5.40) m/uL Hgb 10.4 L (11.4-16.0) gm/dL Hct 30.8 L (34.0-46.0) % U Marijuana (THC) Screen Detected H (NotDetected) Assessment and Plan Assessment: day #1. Patient is resting without complaints and wishes to go home. Vital signs are stable she is afebrile. Uterus is firm nontender she's having normal lochia. My impression this is a normal course. Plan is to continue routine care discharge home later today (1) 39 weeks gestation of Current Visit: No Status: Acute Code(s): Z3A.39 - 39 WEEKS GESTATION OF SNOMED Code(s): 32256997 (2) Elective induction of labor planned Current Visit: No Status: Acute Code(s): BEY0712 - SNOMED Code(s): 897111122 (3) Rh negative status during Current Visit: No Status: Acute Code(s): O26.899 - OTH RELATED CONDITIONS, UNSPECIFIED TRIMESTER; Z67.91 - UNSPECIFIED BLOOD TYPE, RH NEGATIVE SNOMED Code(s): 600487879
--- NOTE | 2023-01-05 06:40 | P.DS ---
Providers Date of admission: 01/04/23 06:00 Expected date of discharge: 01/05/23 Attending physician: Nima Granger Primary care physician: Stated None - Discharge Diagnosis(es) (1) 39 weeks gestation of Current Visit: No Status: Acute (2) Elective induction of labor planned Current Visit: No Status: Acute (3) Rh negative status during Current Visit: No Status: Acute Hospital Course: Please see dictated H&P for intimate details of this patient's admission. Brief summary this pleasant 27-year-old 2 para 1 female 39-2/7 weeks admitted to labor and delivery for requested induction of labor. Patient is admitted she quickly goes on have a vaginal delivery viable male . Please see dictated delivery note. day 1 patient is felt to be stable to be discharged home follow up with me in 6 weeks. Procedures: Induction of labor and normal vaginal delivery. Patient Condition at Discharge: Good Plan - Discharge Summary New Discharge Prescriptions: New Ibuprofen [Motrin] 600 mg PO Q6HR PRN #40 tab PRN Reason: Mild Pain (Scale 1 To 3) Discharge Medication List Ibuprofen [Motrin] 600 mg PO Q6HR PRN #40 tab 01/05/23 [Rx] Follow up Appointment(s)/Referral(s): Nima Granger MD [STAFF PHYSICIAN] - 02/15/23 1:45 pm (Please see me for a visit on) Patient Instructions/Handouts: Vaginal Delivery (DC) Activity/Diet/Wound Care/Special Instructions: No intercourse or anything per vagina for 6 weeks. Please call if any fever, chills, excessive vaginal bleeding, and/or abdominal pain Discharge Disposition: HOME SELF-CARE
[2023-01-05 07:24] LABS: Basophils % (A) 0 %; Eosinophils # (A) 0.3 k/uL (0-0.7); Eosinophils % (A) 3 %; HCT 30.4 % (34.0-46.0); HGB 10.1 gm/dL (11.4-16.0); Hypochromasia Slight; Lymphocytes # (A) 3.4 k/uL (1.0-4.8); Lymphocytes % (A) 33 %; MCH 28.7 pg (25.0-35.0); MCHC 33.3 g/dL (31.0-37.0); MCV 86.2 fL (80.0-100.0); Mean Platelet Volume 7.7; Monocytes # (A) 0.4 k/uL (0-1.0); Monocytes % (A) 4 %; Neutrophils # (A) 6.1 k/uL (1.3-7.7); Neutrophils % (A) 59 %; Platelet Count 330 k/uL (150-450); RBC 3.52 m/uL (3.80-5.40); RDW 14.5 % (11.5-15.5); WBC 10.3 k/uL (3.8-10.6)
[2023-01-05 08:11] VITALS: BP 125/75; RESP 18; TEMP 97.5
[2023-01-05] MEDS: SENNOSIDES-DOCUSATE SODIUM 1 EACH TAB PO SCH (09:05)
== END 2023-01-05 14:00 | disposition home or self-care (01) | DRG 560 ==
LOC: 4FBP 06:00
PROVIDERS: ADMIT Obstetrics & Gynecology; ATTEND Obstetrics & Gynecology
PROC: 10E0XZZ Delivery of Products of Conception, External Approach (ICD-10-PCS; principal; 2023-01-04)
PROC: 10907ZC Drainage of Amniotic Fluid, Therapeutic from Products of Conception, Via Natural or Artificial Opening (ICD-10-PCS; principal; 2023-01-04)
DX: O69.81X0 Labor and delivery complicated by cord around neck, without compression, not applicable or unspecified (principal); O71.82 Other specified trauma to perineum and vulva; O99.334 Smoking (tobacco) complicating childbirth; Z3A.39 39 weeks gestation of pregnancy; Z37.0 Single live birth; Z67.91 Unspecified blood type, Rh negative; Z87.442 Personal history of urinary calculi; Z28.310 Unvaccinated for COVID-19; Z28.21 Immunization not carried out because of patient refusal
CPT/HCPCS: 80306; 85025; 86850; 86900; 86901